=== PATIENT | male | born 1960 | race Caucasian/White ===

== ENCOUNTER 2018-09-07 06:15 | Inpatient (IN) | payer SELFPAY ==
[2018-09-07 06:48] LABS: Prothrombin Time 13.4 SEC (12.0-14.7)
[2018-09-07 06:48] LABS: #Eosinphils 0.2 thou/uL (0.0-0.7); #Lymphocytes 0.9 thou/uL (1.20-3.40); #Monocytes 0.4 thou/uL (0.11-0.59); #Neutrophils 8.7 thou/uL (1.40-6.50); %Basophils 0.5 % (0.0-1.0); %Eosinophils 1.8 % (0.0-10.0); %Lymphocytes 8.6 % (21.0-51.0); %Monocytes 4.1 % (0.0-10.0); Hemoglobin 13.4 g/dL (14.0-18.0); Mean Corpuscular HGB CONC 32.6 g/dL (32.0-36.0); Mean Corpuscular Hemoglobin 30.3 pg (27.0-31.0); Mean Corpuscular Volume 93.1 fL (78.0-98.0); Mean Platelet Volume 7.7 fL (7.4-10.4); Platelet Count 212 thou/uL (130-400); RBC Distribution Width 13.5 % (11.5-14.5); Red Blood Cell (RBC) Count 4.41 mill/uL (4.70-6.10); White Blood Cell (WBC) Count 10.3 thou/uL (4.8-10.8)
[2018-09-07 07:10] LABS: ALT (SGPT) 42 U/L (8-55); AST (SGOT) 46 U/L (5-34); Albumin 3.8 g/dL (3.5-5.0); Alkaline Phosphatase 79 U/L (40-150); Anion Gap 13 mmol/L (10-20); BUN (Urea Nitrogen) 21 mg/dL (8.4-25.7); Bilirubin, Total 0.5 mg/dL (0.2-1.2); CK (CPK) 71 U/L (30-200); Calc. Creatinine Clearance 0 mL/min (70-130); Calcium 8.9 mg/dL (7.8-10.44); Carbon Dioxide 25 mmol/L (22-29); Chloride 105 mmol/L (98-107); Estimated GFR-MDRD 60; Globulin 2.8 g/dL (2.4-3.5); Glucose 354 mg/dL (70-105); Protein, Total 6.6 g/dL (6.0-8.3); Sodium 139 mmol/L (136-145)
--- NOTE | 2018-09-07 08:28 | RAD ---
CHEST 1 VIEW: Date: 09/07/18 INDICATION: Shortness of breath. COMPARISON: None. FINDINGS: There is air space opacity in the right lower lobe suspicious for pneumonia. Recommend correlation. L eft lung appears clear. Heart size is mildly prominent. No pleural effusion or pneumothorax is eviden t. IMPRESSION: Air space opacity of right lower lobe suspicious for pneumonia. Recommend correlation and radiographi c follow-up to resolution. POS: BH
[2018-09-07] MEDS ORDERED: cefTRIAXone\\ROCEPHIN 2 GM VIAL ONE (09:58)
[2018-09-07] MEDS ORDERED: Acetaminophen 325 MG TAB PO PRN (10:33)
[2018-09-07] MEDS ORDERED: Dextrose 50% Abboject 50 ML SYRINGE SLOW IVP PRN (10:41)
[2018-09-07] MEDS ORDERED: HumaLOG 300 UNITS/3 ML VIAL SC PRN (10:41)
[2018-09-07] MEDS ORDERED: Dextrose 5% in Water 1,000 ML IV PRN (10:41)
[2018-09-07] MEDS ORDERED: Carvedilol 6.25 MG TAB PO SCH (10:45)
[2018-09-07] MEDS ORDERED: Lisinopril 10 MG TAB PO SCH (10:45)
[2018-09-07] MEDS ORDERED: Azithromycin 1,000 MG in Sodium Chloride 0.9% 500 ML IVPB SCH (11:00)
[2018-09-07 11:51] LABS: Troponin I 0.061 ng/mL (< 0.028)
[2018-09-07 13:00] VITALS: BMI 26.9
--- NOTE | 2018-09-07 15:28 | HP ---
CHIEF COMPLAINT: Shortness of breath. HISTORY OF PRESENT ILLNESS: This patient is a 57-year-old male with a history of significant tobacco abuse, who is followed by Dr. Adam Colon, who presented via the emergency department. The patient reports that he occasionally will have episodes of acute onset of shortness of breath. He has one of these episodes approximately once a month, although it is variable. He states it comes on fairly suddenly. He feels very short of breath and will have spontaneous resolution within a couple of hours and then he is back to his baseline. He does report that at his baseline he is having some dyspnea with exertion. Today, the patient woke and felt a little bit short of breath when he got out of bed, but attempted to walk to his kitchen and became very dyspneic. He decided at this time he would call 911. Apparently, when EMS arrived, the patient was significantly hypoxic with saturations in the 60s. The patient reports while waiting he got down on his knees because that was the position where he felt like he could breathe the best. His last episode of this occurred about 3 weeks ago. He reports that he has had pulmonary function test with Dr. Colon in the past and was told that he likely had COPD, but also there was a mention of emphysema and asthma. He is on Symbicort, which he has been using routinely, but he does not have a rescue inhaler or nebulizer. He also reports that he has occasional cough that is intermittently productive of clear to discolored sputum, but has not had any in the last several days. Denies any fevers, chills, or chest pain. REVIEW OF SYSTEMS: All other systems were reviewed and all pertinent positives and negatives noted in the history of present illness. PAST MEDICAL HISTORY: 1. COPD/asthma. 2. Hypertension. 3. Diabetes mellitus, which the patient reports is generally under very good control. 4. He also has a history of kidney stones. PAST SURGICAL HISTORY: He had an amputation of the left first finger following a table saw accident. FAMILY HISTORY: Father had a heart attack between 50 and 55 years old, subsequently developed lung cancer, and from that. Mother when he was very young, he does not know any history on her. SOCIAL HISTORY: The patient smokes about 15 cigarettes per day. Denies alcohol or drugs. He is single. He is full code. His sister, Willie Santiago, would be his surrogate decision maker. CURRENT MEDICATIONS: 1. Symbicort inhaled b.i.d., dose is not known. 2. Carvedilol 6.25 p.o. b.i.d. 3. Glipizide 2.5 mg daily. 4. Lisinopril 10 mg daily. 5. Metformin 500 mg b.i.d. ALLERGIES: MORPHINE. PHYSICAL EXAMINATION: VITAL SIGNS: BP 175/94, pulse 83, respirations 19, temperature is 98.3, O2 saturation 95% on room air. GENERAL APPEARANCE: Age-appropriate male, in no distress. Currently, he is sitting up in bed, speaking in full sentences without significant tachypnea. He is wearing no oxygen, and his O2 saturation is 96% to 98%. HEENT: PERRL. No OP lesions. NECK: Supple and symmetric without JVD. HEART: Regular rate and rhythm with no murmurs, gallops, or rubs. LUNGS: Clear to auscultation bilaterally with good chest wall expansion and air exchange. ABDOMEN: Soft, nontender, and nondistended. Positive bowel sounds. No masses. No organomegaly. EXTREMITIES: Reveal no cyanosis, clubbing, or edema. SKIN: Reveals some erythema that is very faint from the abdomen down through the groin area to the upper thighs anteriorly and medially, worse on the right. Multiple small satellite lesions and an evident vermilion type border at the leading edge. 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 PSYCHIATRIC: The patient has normal affect and behavior. NEUROLOGIC: The patient has full function with normal cranial nerves. No gross deficits. LABORATORY DATA: White count 10.3, hemoglobin 13.4, platelets 212. INR is 1 and PTT is 25.0. Sodium is 139, potassium 4.0, chloride 105, CO2 of 25, BUN 21, creatinine 1.23, glucose 354. Lactic acid is 1.3. Calcium 8.9. AST 46 and ALT 42. Troponin 0.026. BNP 1610.7. Flu screen is negative. DIAGNOSTIC DATA: Chest x-ray shows possible right lower lobe infiltrate. EKG shows some left axis deviation with evidence of LVH and repolarization abnormality. IMPRESSION AND PLAN: 1. Acute hypoxic respiratory failure with the patient having reported oxygen saturations in the 60s. He appears to be dramatically better at this point as he is largely asymptomatic and saturating well. Because of the recurrent nature of this and the concern for the possible pneumonia, we will keep the patient on observation status. He has received Rocephin and azithromycin. I will continue that along with aggressive nebulizer treatments as needed, and we will also work up his cardiac situation with the elevated BNP given the episodic nature, and the fairly rapid resolution makes this concerning for possible anginal equivalent. 2. Elevated BNP, concerning for the possibility of underlying heart failure in a patient who has multiple risk factors for coronary artery disease including diabetes, hypertension, smoking, and family history. He may need stress testing at some point as well. His symptoms could potentially represent some type of flash pulmonary edema, although we do not appreciate any that on his x-ray here today. We will see what the echo results are and determine where to go from there. 3. Hypertension. The patient's blood pressure is running very high here today. He has not had his morning medications. We will go ahead and order those now. 4. Diabetes mellitus. We will resume the patient's usual home medications with the diabetic diet, Accu-Cheks, and sliding scale insulin. 5. The patient has evidence of likely tinea cruris that has become expansive over the abdomen and upper thighs. We will try some topical ketoconazole, avoiding p.o. because of the potential interaction with the azithromycin. Job ID: [id number]
[2018-09-07 17:18] LABS: Troponin I 0.058 ng/mL (< 0.028)
[2018-09-07] MEDS: Carvedilol 6.25 MG TAB PO SCH (17:42)
[2018-09-07] MEDS: metFORMIN 500 MG TAB PO SCH (17:42)
[2018-09-08 05:37] LABS: #Basophils 0.1 thou/uL (0.0-0.2); #Eosinphils 0.1 thou/uL (0.0-0.7); #Lymphocytes 2.2 thou/uL (1.20-3.40); #Monocytes 0.9 thou/uL (0.11-0.59); #Neutrophils 6.6 thou/uL (1.40-6.50); %Basophils 0.7 % (0.0-1.0); %Eosinophils 0.7 % (0.0-10.0); %Lymphocytes 22.8 % (21.0-51.0); %Monocytes 8.8 % (0.0-10.0); %Neutrophils 67.1 % (42.0-75.0); Hemoglobin 13.1 g/dL (14.0-18.0); Mean Corpuscular HGB CONC 32.9 g/dL (32.0-36.0); Mean Corpuscular Hemoglobin 30.7 pg (27.0-31.0); Mean Corpuscular Volume 93.4 fL (78.0-98.0); Platelet Count 231 thou/uL (130-400); RBC Distribution Width 13.5 % (11.5-14.5); Red Blood Cell (RBC) Count 4.27 mill/uL (4.70-6.10); White Blood Cell (WBC) Count 9.8 thou/uL (4.8-10.8)
[2018-09-08 05:47] LABS: Magnesium 1.6 mg/dL (1.6-2.6); Potassium 4.1 mmol/L (3.5-5.1)
[2018-09-08] MEDS: metFORMIN 500 MG TAB PO SCH (08:15)
[2018-09-08] MEDS: Carvedilol 6.25 MG TAB PO SCH (08:15)
[2018-09-08 08:16] VITALS: BP 176/85; TEMP 97.7
[2018-09-08] MEDS ORDERED: Lisinopril 10 MG TAB PO SCH (09:00)
[2018-09-08] MEDS ORDERED: Ketoconazole 2% Cream 15 gm Tube TOP SCH (09:00)
[2018-09-08] MEDS ORDERED: cefTRIAXone\\ROCEPHIN 1 GM in Sodium Chloride 0.9% 100 ML IVPB SCH (10:00)
--- NOTE | 2018-09-08 10:54 | DIS ---
DATE OF ADMISSION: 09/07/2018 DATE OF DISCHARGE: 09/08/2018 DISCHARGE DIAGNOSES: 1. Acute hypoxic respiratory failure. 2. Right lower lobe pneumonia. 3. Chronic obstructive pulmonary disease. 4. Elevated BNP. 5. Hypertension. 6. Diabetes mellitus. 7. Tinea cruris. HISTORY OF PRESENT ILLNESS: This patient is a 57-year-old male with a history of COPD/asthma with hypertension and diabetes, who continues to smoke. The patient reports that he has episodes of fairly abrupt onset of shortness of breath, which lasts a couple of hours and then typically would spontaneously resolve. He decided that when it happened again, he would come to the hospital. Therefore, when this some more episode occurred, he called for EMS. The report from the ER was that the patient had sats in the 60s on the arrival of the EMS. The patient reported he had been using his Symbicort as had been prescribed, but did not have a rescue inhaler per se. He received some treatment in the field and nebulizers in the emergency department, and by the time I examined the patient, he was breathing comfortably on room air with sats at 99%. No dyspnea and speaking in full sentences. His lungs were clear. LABORATORY DATA: His labs were notable for white count of 10.3. Glucose was elevated at 354. BNP was 1611. Troponin was 0.026. Lactic acid was 1.3. His chest x-ray report indicated some right lower lobe infiltrate. His EKG showed left ventricular hypertrophy with some repolarization abnormality, some left axis deviation. It was also noted that the patient's blood pressure was elevated in the 170s, although he indicated he had not taken his blood pressure medicines that morning. HOSPITAL COURSE: The patient was resumed on his usual home medications. He was placed on observation on telemetry, where he had no significant findings. His troponin increased slightly to 0.061 and the subsequent was 0.058. The patient had improvement of his blood sugars down to 195. He had repeat chest x-ray ordered. Echocardiogram ordered because of the atypical nature of his chest pain and the elevated BNP with some evidence of LVH on his EKG. The patient remained essentially asymptomatic after admission, and through the night, he was fairly adamant that he was going home first thing this morning. He understands that we do not have the results back on some of the followup studies, but he is essentially saying he is going to leave either way. PHYSICAL EXAMINATION: VITAL SIGNS: This morning, his temperature is 97.7, pulse is 67, respirations 20, O2 saturation 95%, and blood pressure is 176/85. GENERAL: He is awake, alert, oriented, pleasant, and cooperative. HEART: Regular rate and rhythm without murmurs. LUNGS: Clear with fairly good air exchange. No wheezes or rales. ABDOMEN: Benign. EXTREMITIES: No edema. Repeat labs this morning; white count is 9.8, hemoglobin 13.1, and platelets 231. Blood cultures are negative thus far. DISPOSITION: I had a good conversation with the patient explaining that his lungs sound fairly clear and his episodic shortness of breath lasting a couple of hours and resolving sounds somewhat atypical for COPD or even asthma. Clearly, he appeared to have some significant hypoxia on initial presentation by the EMS, however, that resolved quickly and he looks great now. I am concerned there may be an underlying cardiac component. I strongly encouraged him to follow up with Dr. Colon regarding the results of his echocardiogram. We will also prescribe a rescue inhaler and start him on daily aspirin. He understands that should he have any more of these episodes, he should come back to the hospital so that we can fully pursue further cardiac workup including likely stress testing. The patient will be discharged to home. He will be on a heart healthy diet. MEDICATIONS: He will have his usual home medications including, 1. Metformin 500 mg b.i.d. 2. Glipizide 2.5 daily. 3. Zestril 10 mg daily. 4. Coreg 6.25 b.i.d. He will have prescriptions for, 1. Levaquin 750 mg p.o. daily. 2. Aspirin 81 mg daily. 3. Albuterol 2 puffs q.4 hours p.r.n. FOLLOWUP: He is to follow up with Dr. Colon. Encouraged him to follow up with Cardiology as well. We will make an appointment with Dr. Marsh. He is again encouraged to return to the hospital should he have any recurrence of these symptoms. The patient expressed understanding. All his questions were answered. Also of note, the patient had some dermatitis over the lower abdomen through the groin and upper thigh area that was felt to be consistent with a tinea cruris that was expanding, and he was given some topical ketoconazole. However, due to potential interactions with the other medications, he was not given oral ketoconazole, and he was encouraged to follow up with Dr. Colon to pursue further evaluation of that, but that is likely low priority. Job ID: [id number]
[2018-09-08] MEDS ORDERED: Azithromycin 500 MG in Sodium Chloride 0.9% 250 ML 250 ML IVPB SCH (11:00)
== END 2018-09-08 10:01 | disposition home or self-care (01) | DRG 193 ==
LOC: ERS 06:15 → SJJU 09:12 → 2SW 12:27
PROVIDERS: ADMIT Internal Medicine; ATTEND Internal Medicine
DX: J18.1 Lobar pneumonia, unspecified organism (principal); J96.01 Acute respiratory failure with hypoxia; J44.0 Chronic obstructive pulmonary disease with (acute) lower respiratory infection; I10 Essential (primary) hypertension; E11.9 Type 2 diabetes mellitus without complications; B35.6 Tinea cruris; F17.210 Nicotine dependence, cigarettes, uncomplicated; Z79.84 Long term (current) use of oral hypoglycemic drugs; Z87.442 Personal history of urinary calculi; Z79.51 Long term (current) use of inhaled steroids; Z79.899 Other long term (current) drug therapy
CPT/HCPCS: 36415; 36416; 71045; 80053; 82550; 83605; 83735; 83880; 84132; 84484; 85025; 85610; 85730; 87040; 87804; 93005; 93306; 94760; J0456; J0696; J7050

== ENCOUNTER 2019-06-10 09:06 | Inpatient (IN) | payer SELFPAY ==
[2019-06-10 10:37] LABS: ALT (SGPT) 10 U/L (8-55); AST (SGOT) 12 U/L (5-34); Albumin 3.4 g/dL (3.5-5.0); Alkaline Phosphatase 82 U/L (40-110); Anion Gap 18 mmol/L (10-20); BUN (Urea Nitrogen) 18 mg/dL (8.4-25.7); Bilirubin, Total 0.6 mg/dL (0.2-1.2); Calc. Creatinine Clearance 0 mL/min (70-130); Calcium 8.3 mg/dL (7.8-10.44); Carbon Dioxide 19 mmol/L (22-29); Chloride 104 mmol/L (98-107); Estimated GFR-MDRD 54; Globulin 2.9 g/dL (2.4-3.5); Glucose 236 mg/dL (70-105); Potassium 3.6 mmol/L (3.5-5.1); Protein, Total 6.3 g/dL (6.0-8.3); Sodium 137 mmol/L (136-145)
[2019-06-10 11:21] LABS: Band 13 % (5-11); Hemoglobin 14.1 g/dL (14.0-18.0); Lymphocytes 25 % (21-51); MDiff Complete? YES; Mean Corpuscular HGB CONC 31.4 g/dL (32.0-36.0); Mean Corpuscular Hemoglobin 29.1 pg (27.0-31.0); Mean Corpuscular Volume 92.6 fL (78.0-98.0); Mean Platelet Volume 8.2 fL (7.4-10.4); Monocytes 15 % (0-10); Neutrophil 46 % (42-75); Platelet Count 170 thou/uL (130-400); RBC Distribution Width 12.4 % (11.5-14.5); RBC Morphology Normal; Reactive Lymphocytes 1 % (0-10); Red Blood Cell (RBC) Count 4.85 mill/uL (4.70-6.10); White Blood Cell (WBC) Count 5.9 thou/uL (4.8-10.8)
[2019-06-10] MEDS ORDERED: HYDROcodone/Acetaminophen 10/325 mg Tablet ONE (11:28)
--- NOTE | 2019-06-10 12:02 | PDOC.HOSPP ---
- Subjective Encounter Date: 06/10/19 Encounter Time: 12:00 Subjective: intubated, sedated - Objective Result Diagrams: 06/10/19 09:49 06/10/19 09:49 Additional Labs: Accuchecks 06/10/19 09:22 POC Glucose 217 H - Exam Neck: no JVD Heart: RRR, no murmur Respiratory - other findings: coarse bilat Gastrointestinal: soft, normal bowel sounds Extremities - other findings: anasarca
[2019-06-10] MEDS ORDERED: Ondansetron PF 4 MG/2 ML Vial IVP PRN (12:33)
[2019-06-10] MEDS ORDERED: Dextrose 50% Abboject 50 ML SYRINGE SLOW IVP PRN (12:33)
[2019-06-10] MEDS ORDERED: Dextrose 5% in Water 1,000 ML IV PRN (12:33)
[2019-06-10] MEDS ORDERED: Ketorolac Tromethamine 30 MG/ML VIAL IVP PRN (12:34)
--- NOTE | 2019-06-10 12:49 | CT ---
EXAM: CT brain without contrast HISTORY: Altered mental status with right-sided weakness COMPARISON: None TECHNIQUE: Multiple contiguous axial images were obtained and a CT of the brain without contrast. FINDINGS: There is loss of anderson-white matter differentiation in the left parieto-occipital region wit hout significant volume loss which likely represents an evolving infarction. There is no evidence of hydrocephalus, intracranial hemorrhage, or extra-axial fluid collection. The calvarium and overlying soft tissues are unremarkable. The visualized paranasal sinuses and masto id air cells are well aerated. IMPRESSION: Evolving left parieto-occipital infarction.
[2019-06-10] MEDS ORDERED: Enoxaparin Sodium 80 MG/0.8 ML SYRINGE ONE (13:09)
--- NOTE | 2019-06-10 13:23 | HP ---
PRIMARY CARE PROVIDER: Adam Colon MD. HISTORY OF PRESENT ILLNESS: The patient fell yesterday. He denies blacking out. Denies any seizure or loss of consciousness. He drove himself to the [facility] because of some right-sided chest pain. He was sent to [place] [facility] with confusion, altered mental status. [facility] Hospitalist Service was called to admit him. He describes the pain is excruciating, worse with movement, happens after he fell 24 hours ago. The patient has a right-sided spastic hemiplegia. He states he had a stroke earlier this year. He was seen at [facility], not at our hospital. The patient is a difficult historian, partly due to a probable mild aphasia. However, he is alert and oriented with an adequate fund of knowledge, and through our discussion, I was able to get a very reasonable history and physical. PAST MEDICAL HISTORY: Stroke earlier this year with right-sided weakness; diabetes mellitus, insulin-dependent; high blood pressure; elevated cholesterol; and chronic obstructive pulmonary disease. He does not have his medicines with him and does not remember all the doses, but he takes metformin, glipizide, lisinopril, and cholesterol medicine. ALLERGIES: HE IS ALLERGIC TO MORPHINE, CAUSES A RASH. PAST SURGICAL HISTORY: He cut his index finger off his left hand with a chop saw earlier in his life. FAMILY HISTORY: Negative for diabetes and stroke. SOCIAL HISTORY: He is single. Full code status. Does not choose the designated next of kin. He smokes a half a pack a day. He states he is trying to quit. No alcohol. REVIEW OF SYSTEMS: GENERAL: No headache. No true dizziness. He just lost his balance and fell yesterday. EYES: No double vision, blurred vision, or flashing lights. EAR, NOSE, AND THROAT: No ear pain or drainage. No nasal bleeding. No trouble swallowing. CARDIAC: No chest pain other than this sharp pain in his right lateral chest post fall. No orthopnea. No paroxysmal nocturnal dyspnea. No cough, wheezing, or asthma. GASTROINTESTINAL: No nausea, vomiting, diarrhea, abdominal pain, or constipation. GENITOURINARY: No hematuria or dysuria. MUSCULOSKELETAL: He states that he feels like his weakness and clumsiness in his right side is worse than previous. PSYCHIATRIC: He denies any anxiety or depression. SKIN: He notes no skin changes, bruises, bleeding, or rash. HEME/LYMPH: He has noted no lumps or tenderness in his groin under his arms or his neck. PHYSICAL EXAMINATION: GENERAL: He is a modestly disheveled gentleman. VITAL SIGNS: Blood pressure 157/82, pulse 88 at times and 150 at times, respirations 18, O2 saturation was 97% on room air, and temperature was 98.2. HEAD, EYES, NOSE, AND THROAT: Revealed pupils are equal and round. Extraocular movements are intact. Sclerae are white. Tympanic membranes are clear. Nose is clear. Oral mucous membranes are wet. NECK: No jugular venous distention, adenopathy, or thyromegaly. His right posterior lateral chest in the posterior axillary line was exquisitely tender to palpation. LUNGS: His breath sounds revealed bilateral expiratory wheezes. HEART: While I was examining him, he had a rapid irregular heart rate at approximately 150. No murmurs or gallops were appreciated. Shortly thereafter, he was examined, had a regular rhythm without murmurs or gallops. ABDOMEN: Soft. Bowel sounds are normal. No hepatosplenomegaly. No mass. No rebound. No bruits. EXTREMITIES: Revealed no cyanosis, clubbing, or edema. Pulses; carotid, radial, and femoral pulses intact pedal pulses diminished. SKIN: Warm and dry without bruises or rash. HEME/LYMPH: Revealed no tender or swollen lymph nodes in axilla, inguinal, or cervical area. NEUROLOGICAL: Cranial nerves 2 through 12 are intact. He has a right spastic hemiparesis with dis-coordination, but his strength is at least 4/5. DIAGNOSTIC STUDIES: EKG revealed rapid atrial fibrillation with no acute ST-T abnormality reviewed by myself. No radiological studies have been done. LABORATORY DATA: Comprehensive metabolic profile; CO2 is 19, creatinine is 1.35, blood sugar is 236, otherwise normal. CBCs unremarkable. ADMITTING DIAGNOSES: 1. Atrial fibrillation with rapid ventricular response. 2. History of stroke, subjectively adverse, suspicious for extension of previous stroke. 3. 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 4. Hypertension. 5. Dyslipidemia. 6. Tobacco abuse. PLAN: 1. Stat CT scan, if no acute findings, then a following MRI. 2. Telemetry. He is currently in regular sinus rhythm. If this relapses stay atrial fib again, he will be started on an IV infusion of Cardizem. Accu-Chek sliding scales will be obtained. Metformin will be held for the moment. A prolactin will be drawn because of the suspicion for seizure activity. He will require frequent re-evaluations today. Job ID: [id number]
--- NOTE | 2019-06-10 13:43 | MRI ---
EXAM: MRI of the brain without contrast HISTORY: Altered mental status and increasing right-sided weakness COMPARISON: CT brain 06/10/2019 TECHNIQUE: Multiplanar multisequence MR images were obtained of the brain without IV contrast. FINDINGS: There is restricted diffusion and high FLAIR signal in the left parieto-occipital lobe. This correspo nds to the abnormality on CT and represents an evolving acute to subacute infarction. No hydronephrosis. No extra-axial fluid collection or intracranial hemorrhage. The expected flow voids are present. Corpus callosum, pituitary, and craniocervical junction are within normal limits. The calvarium and overlying soft tissues are unremarkable. The paranasal sinuses and mastoid air cells are well aerated. IMPRESSION: Left parieto-occipital infarction.
[2019-06-10 15:12] VITALS: BMI 26.4
[2019-06-10] MEDS: Acetaminophen 325 MG TAB PO PRN (15:16)
--- NOTE | 2019-06-10 15:18 | PDOC.EVN ---
Event Note - Event Note Event Note: progress note by myself dated 06/10/19 is incorrect
[2019-06-10 16:43] LABS: Thyroid Stimulating Hormone 1.3709 uIU/mL (0.35-4.94)
[2019-06-10] MEDS: HumaLOG 300 UNITS/3 ML VIAL SC PRN (17:56)
--- NOTE | 2019-06-10 18:36 | ULT ---
EXAM: Carotid Doppler PROVIDED CLINICAL HISTORY: None COMPARISON: None FINDINGS: Grayscale and color Doppler sonography with spectral analysis was performed of the extracranial carot id system bilaterally. The distal left internal carotid artery was not visualized. There is diffuse intimal thickening involving both common carotid arteries. Atherosclerotic plaque is seen in the huber tid bulb region bilaterally. There is no evidence for a hemodynamically significant internal carotid artery stenosis by peak systolic velocity or ratio criteria. Antegrade flow is seen in the r ight vertebral artery. The left vertebral artery does not demonstrate flow.. IMPRESSION: 1. No sonographic evidence for a hemodynamically significant internal carotid artery stenosis. 2. No detectable flow within the left vertebral artery.
--- NOTE | 2019-06-10 19:06 | PDOC.EVN ---
Event Note - Event Note Event Note: patient in and out atrial fib at 140+/-. will start diltiazem infusion, formal cardiology consult in AM
[2019-06-10] MEDS ORDERED: Diltiazem 125 MG in Sodium Chloride 0.9% 100 ML IVPB SCH (19:15)
[2019-06-10] MEDS ORDERED: Carvedilol 6.25 MG TAB PO SCH (21:00)
[2019-06-10] MEDS: Atorvastatin Calcium 40 MG TAB PO SCH (21:52)
[2019-06-10] MEDS: Enoxaparin Sodium 80 MG/0.8 ML SYRINGE SC SCH (21:53)
[2019-06-10] MEDS ORDERED: Diabetic Tussin 200 MG/10 ML UDCUP PO PRN (23:54)
[2019-06-11] MEDS ORDERED: HYDROcodone/Acetaminophen 5/325 mg Tablet PO PRN (00:04)
[2019-06-11] MEDS: HYDROcodone/Acetaminophen 5/325 mg Tablet PO PRN (00:51)
[2019-06-11 05:10] LABS: #Lymphocytes 1.6 thou/uL (1.20-3.40); #Monocytes 0.8 thou/uL (0.11-0.59); #Neutrophils 4.1 thou/uL (1.40-6.50); %Basophils 0.3 % (0.0-1.0); %Eosinophils 0.3 % (0.0-10.0); %Lymphocytes 24.3 % (21.0-51.0); %Monocytes 12.4 % (0.0-10.0); %Neutrophils 62.7 % (42.0-75.0); Hemoglobin 13.7 g/dL (14.0-18.0); Mean Corpuscular HGB CONC 32.4 g/dL (32.0-36.0); Mean Corpuscular Hemoglobin 30.4 pg (27.0-31.0); Mean Corpuscular Volume 93.8 fL (78.0-98.0); Mean Platelet Volume 8.3 fL (7.4-10.4); Platelet Count 156 thou/uL (130-400); RBC Distribution Width 12.4 % (11.5-14.5); Red Blood Cell (RBC) Count 4.51 mill/uL (4.70-6.10); White Blood Cell (WBC) Count 6.5 thou/uL (4.8-10.8)
[2019-06-11 05:34] LABS: Anion Gap 16 mmol/L (10-20); BUN (Urea Nitrogen) 15 mg/dL (8.4-25.7); Calc. Creatinine Clearance 83 mL/min (70-130); Calcium 8.3 mg/dL (7.8-10.44); Carbon Dioxide 20 mmol/L (22-29); Cardiac Risk 6.6 (Less than 4.5); Chloride 104 mmol/L (98-107); Cholesterol 177 mg/dl (< 200 Desired); Estimated GFR-MDRD 72; Glucose 258 mg/dL (70-105); HDL Cholesterol 27 mg/dL (>60 Neg Risk); LDL Cholesterol, Calculated 118 mg/dL; Sodium 136 mmol/L (136-145); Triglycerides 162 mg/dL (Less than 150)
[2019-06-11] MEDS: HumaLOG 300 UNITS/3 ML VIAL SC PRN ×3 (06:50→16:58)
[2019-06-11] MEDS: Enoxaparin Sodium 80 MG/0.8 ML SYRINGE SC SCH ×2 (08:39→20:56)
[2019-06-11] MEDS ORDERED: Artificial Tears 18 DROP/0.9 ML EA EYE PRN (08:45)
[2019-06-11] MEDS ORDERED: Ondansetron ODT 4 MG TAB PO PRN (08:45)
[2019-06-11] MEDS ORDERED: Sodium Chloride 0.65% Nasal 44 ML BOT EA NARE PRN (08:45)
[2019-06-11] MEDS ORDERED: Loperamide HCl 2 MG CAP PO PRN (08:45)
[2019-06-11] MEDS ORDERED: Bisacodyl 10 MG SUPP PR PRN (08:45)
[2019-06-11] MEDS ORDERED: Calcium Carbonate 500 MG ChewTAB PO PRN (08:45)
[2019-06-11] MEDS ORDERED: Loratadine 10 MG TAB PO PRN (08:45)
[2019-06-11] MEDS ORDERED: Senokot S 8.6-50 MG TAB PO PRN (08:45)
[2019-06-11] MEDS ORDERED: Cepastat Lozenges 1 LOZ PO PRN (08:45)
[2019-06-11] MEDS ORDERED: Lisinopril 10 MG TAB PO SCH ×2 (09:00→21:00)
[2019-06-11] MEDS ORDERED: Aspirin 325 MG TAB PO SCH (09:00)
[2019-06-11] MEDS ORDERED: glipiZIDE 10 MG TAB PO SCH ×2 (10:45→16:30)
[2019-06-11] MEDS ORDERED: metFORMIN 500 MG TAB PO SCH ×2 (10:45→17:00)
[2019-06-11] MEDS ORDERED: Carvedilol 3.125 MG TAB PO SCH ×2 (10:45→21:00)
--- NOTE | 2019-06-11 11:17 | PDOC.HOSPP ---
- Subjective Encounter Date: 06/11/19 Encounter Time: 07:00 Subjective: Patient seen and examined. No new complaints. No overnight events - Objective Vital Signs & Weight: Vital Signs (12 hours) Temp Pulse Resp BP BP BP Pulse Ox 06/11/19 09:37 97 06/11/19 08:39 170/80 H 06/11/19 08:35 99.2 F 68 16 170/80 H 97 06/11/19 04:00 97.5 F L 73 18 169/82 H 98 06/11/19 00:00 98.4 F 84 18 188/94 H 99 Weight Weight 173 lb 14.4 oz I&O: 06/10/19 06/11/19 06/12/19 06:59 06:59 06:59 Intake Total 300 Balance 300 Result Diagrams: 06/11/19 04:29 06/11/19 04:29 Additional Labs: Accuchecks 06/11/19 06/10/19 06/10/19 06:12 20:27 16:34 POC Glucose 223 H 218 H 264 H Radiology Reviewed by me: Yes EKG Reviewed by me: Yes Hospitalist ROS - Review of Systems Constitutional: denies: fever, chills, sweats, weakness, malaise, other Eyes: denies: pain, vision change, conjunctivae inflammation, eyelid inflammation, redness, other ENT: denies: ear pain, ear discharge, nose pain, nose discharge, nose congestion , mouth pain, mouth swelling, throat pain, throat swelling, other Respiratory: denies: cough, dry, shortness of breath, hemoptysis, SOB with excertion, pleuritic pain, sputum, wheezing, other Cardiovascular: denies: chest pain, palpitations, orthopnea, paroxysmal noc. dyspnea, edema, light headedness, other Gastrointestinal: denies: nausea, vomiting, abdominal pain, diarrhea, constipation, melena, hematochezia, other Genitourinary: denies: dysuria, frequency, incontinence, hematuria, retention, other Musculoskeletal: denies: neck pain, shoulder pain, arm pain, back pain, hand pain, leg pain, foot pain, other - Medication Medications: Active Medications Generic Name Dose Route Start Last Admin Trade Name Freq PRN Reason Stop Dose Admin Acetaminophen 650 mg 06/10/19 12:33 06/10/19 15:16 Tylenol PO 650 mg Q4H PRN Administration Headache/Fever/Mild Pain (1-3) Hydrocodone Bitart/Acetaminophen 1 tab 06/11/19 00:04 06/11/19 00:51 [place] 5/325 PO 1 tab Q4H PRN Administration Moderate Pain (4-6) Aspirin 325 mg 06/11/19 09:00 06/11/19 08:40 Aspirin PO 325 mg DAILY TRISTAN Administration Atorvastatin Calcium 40 mg 06/10/19 21:00 06/10/19 21:52 Lipitor PO 40 mg HS TRISTAN Administration Enoxaparin Sodium 80 mg 06/10/19 21:00 06/11/19 08:39 Lovenox SC 80 mg 0900,2100 TRISTAN Administration Guaifenesin 200 mg 06/10/19 23:54 06/11/19 00:51 Robitussin Sf PO 200 mg Q4H PRN Administration Cough Diltiazem HCl 125 mg/ Sodium 125 mls @ 5 mls/hr 06/10/19 19:15 06/10/19 22:08 Chloride IVPB 125 mls INF TRISTAN Administration Protocol 5 MG/HR Insulin Human Lispro 0 units 06/10/19 12:33 06/11/19 06:50 Humalog SC 4 unit .MODERATE SLIDING SC PRN Administration Moderate Correctional Scale Lisinopril 10 mg 06/11/19 09:00 06/11/19 08:39 Zestril PO 10 mg DAILY TRISTAN Administration - Exam General Appearance: NAD, awake alert Eye: PERRL, anicteric sclera ENT: normocephalic atraumatic, no oropharyngeal lesions Neck: supple, symmetric, no JVD, no thyromegaly Heart: no murmur, no gallops, no rubs Respiratory: CTAB, no wheezes, no rales, no ronchi Gastrointestinal: soft, non-tender, non-distended, normal bowel sounds Extremities: no cyanosis, no clubbing, no edema Skin: normal turgor, no lesions Neurological - other findings: right side weakness noted Psychiatric: normal affect, normal behavior Hosp A/P (1) CVA (cerebral vascular accident) Code(s): I63.9 - CEREBRAL INFARCTION, UNSPECIFIED Status: Acute Qualifiers: CVA mechanism: embolism Precerebral and cerebral artery: middle cerebral artery Laterality of affected vessel: left Qualified Code(s): I63.412 - Cerebral infarction due to embolism of left middle cerebral artery Plan: left paritooccipital infarct (2) 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 C congestive heart failure Code(s): I50.41 - ACUTE COMBINED SYSTOLIC AND DIASTOLIC (CONGESTIVE) HRT FAIL Status: Acute (3) Atrial fibrillation Code(s): I48.91 - UNSPECIFIED ATRIAL FIBRILLATION Status: Acute Qualifiers: Atrial fibrillation type: paroxysmal Qualified Code(s): I48.0 - Paroxysmal atrial fibrillation (4) COPD (chronic obstructive pulmonary disease) Status: Chronic (5) Diabetes mellitus Code(s): E11.9 - TYPE 2 DIABETES MELLITUS WITHOUT COMPLICATIONS Status: Acute Qualifiers: Diabetes mellitus type: type 2 Diabetes mellitus oysterman insulin use: with oysterman use Diabetes mellitus complication status: without complication Qualified Code(s): E11.9 - Type 2 diabetes mellitus without complications; Z79.4 - long term care phlebotomist (current) use of insulin (6) Hypertension Code(s): I10 - ESSENTIAL (PRIMARY) HYPERTENSION Status: Chronic Qualifiers: Hypertension type: essential hypertension Qualified Code(s): I10 - Essential (primary) hypertension - Plan old records reviewed/req, PT/OT 06/11/19 neuro to see today cardio to see today will need chronic anticoagulant on lovenox, cardizem drip, will start glipizide and metformin add coreg adjust medication
[2019-06-11 12:38] LABS: Troponin I 0.058 ng/mL (< 0.028)
--- NOTE | 2019-06-11 14:24 | CON ---
DATE OF CONSULTATION: 06/11/2019 INDICATION FOR CONSULTATION: A 58-year-old gentleman who was admitted after a fall yesterday and having some confusion, was noted to be what was thought to be atrial fibrillation or flutter. Upon my evaluation I looked at this rhythm strips and EKG. This appears to be more of an SVT with a heart rate of about 130-140. I do not see any irregularity that would make me think it is atrial fibrillation. He has had no previous history of atrial fibrillation. He did undergo an echocardiogram yesterday which showed ejection fraction about 30% to 35%. with what appears to be diastolic dysfunction. The left ventricle was dilated and otherwise he had some mild mitral aortic and trace tricuspid valve regurgitation. He denies any previous cardiac history, but he does have risk factors for coronary artery disease which include hypertension, diabetes, tobacco abuse, hypercholesterolemia. His father had a myocardial infarction in his 50s apparently, so this patient certainly could have underlying coronary artery disease that may be an etiology of his decreased ejection fraction, also what appeared to be some type of SVT. This may be due to the recent pain after he had a fall yesterday. He hit his ribs and that was the reason he actually went to the emergency room. He fell at home. He said his legs just gave way and he does have some pain in his legs, but they gave way and then he actually got up and drove himself to the hospital and when he was there, it was noted that he seemed to be somewhat confused, which may be due to his previous stroke. He did underwent a CT scan which showed also the CVA, but whether or not this is a new finding is unclear. He may need to undergo further evaluation with an MRI. He did not appear to have any more weakness in general than what he would normally have he says. I do not see that any cardiac enzymes were obtained. We can always use this for evaluation. I would not be surprised if it were not slightly elevated in view of the fact that he has rapid heart rate, but otherwise I do not see any indication that the cardiac enzymes have been obtained. His LDL level was 118 and triglycerides were 162. He does take medications apparently for his cholesterol and for hypertension. Today, his blood pressure is still elevated at 170/80. At this time, he seems to be relatively coherent. He did get some confusion about the events, however, otherwise appears to be stable. He denies any pain and EKG did not show any acute ST-segment changes that would make me think the patient has any evidence of ischemia. His EKG does show an interventricular conduction abnormality and what appears to be at times an incomplete left bundle or right bundle-branch block with a left anterior fascicular block. He did have some T-wave inversions in the lateral leads which could indicate some ischemia. This was apparently from the emergency room EKG. The EKG that was repeated here in the emergency room at 9:52 yesterday morning did not show any significant ST-segment changes, but did show the incomplete left bundle branch block. There was no evidence of ST-segment elevation. He just had some nonspecific lateral EKG changes. PAST MEDICAL HISTORY: Significant for the CVA which he suffered earlier this year. He continues to have some right-sided weakness. He had previously worked, but now lives alone, he has been there for about 6 months and he had a fall yesterday. He has diabetes which is insulin dependent. He has hypertension, hypercholesterolemia. He has COPD. He has had a history of pneumonia. He has chronic kidney disease, history of tobacco abuse. Otherwise his past medical history is significant for nephrolithiasis. 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 ALLERGIES: HE IS ALLERGIC TO MORPHINE. PRESENT MEDICATIONS: Include diltiazem, which he has been placed on a drip. He is on aspirin 325 mg a day, Lipitor 40 mg a day, Coreg is 6.25 mg b.i.d. He is on Lovenox 80 mg b.i.d., glipizide 5 mg b.i.d., lisinopril 10 mg a day, metformin 500 mg b.i.d. He is also taking p.r.n. medications as well as insulin on a sliding scale. FAMILY HISTORY: His father had myocardial infarction in his 50s. REVIEW OF SYSTEMS: HEENT: He had no HEENT complaints. No visual changes, hearing loss or tinnitus. CARDIOVASCULAR: He denied any chest pain, or significant shortness of breath. He does have some shortness of breath with exertion. He had no claudication symptoms. GI: He had no nausea, vomiting, or diarrhea. : No dysuria, polyuria, hematuria. MUSCULOSKELETAL: He always complains of some weakness on the right side since his stroke, otherwise there were no neurologic problems. PHYSICAL EXAMINATION: GENERAL: Reveals a well-developed, well-nourished gentleman, who is in no acute distress at this time. He is he is alert. He seems to be oriented. He did get confused about some issues. He is a little bit more forgetful about the events of what happened yesterday. CHEST: Clear to auscultation. I do not hear any rales, rhonchi, or wheezing. CARDIOVASCULAR: Revealed a regular rate and rhythm with normal S1, S2. I do not hear an S3 or S4. There were no significant murmurs, heaves, thrills, bruits, or rubs. ABDOMEN: Soft, nontender. Positive bowel sounds are present. No organomegaly or masses were noted. In the thorax he does have significant tenderness on the left side after the fall. He has difficulty even breathing due to the pain, but does not appear to have any fractured ribs. It appears that he simply had a bad bruise. MUSCULOSKELETAL: Other than the right-sided weakness, he appears to be relatively normal. VASCULAR: Pedal pulses are positive. Popliteal pulses are present. I do not hear any significant bruits anywhere. PSYCHOSOCIAL: He appears to be of good sound mind. He does not appear to be depressed or anxious. LABORATORY DATA: Shows a WBC of 6.5, hemoglobin 13.7, platelet count 156,000. His potassium was 4.0, BUN was 15, creatinine 1.05, blood sugar was 258. His LDL was 118, triglycerides 162. IMPRESSION: 1. Elderly gentleman with a fall yesterday, which may be due to generalized weakness associated with previous cerebrovascular accident and the confusion, uncertain of etiology, whether this is associated with the fall or not. 2. History of previous cerebrovascular accident. He did undergo a CT scan which shows evidence of a left-sided cerebrovascular accident, which I believe is involved in the left parieto-occipital area. Whether or not there is any new stroke is unclear. He may need to undergo an MRI for further evaluation. 3. History of what appears to be supraventricular tachycardia. We will start the patient on beta blockers and see if we can control the further episodes of the supraventricular tachycardia. Did not appear to be in atrial fibrillation. If this is felt to be flutter, we will ask data integrity analyst, but it appears to be more of a supraventricular tachycardia. If he has flutter, then he would be a candidate to undergo most likely an ablation, but we will try beta blockers first to see we can control the rate. We will ask for a troponin to see if there is any abnormalities there that would be out of line. 4. Multiple risk factors for coronary artery disease. The patient will need to undergo some type of stress testing in the future to rule out evidence of coronary artery disease as a possible etiology of the decrease in left ventricular systolic function. 5. Cardiomyopathy of uncertain etiology whether or not this is due to previous events in the past. He denies any illicit drug use that would entail something that would cause a cardiomyopathy. It could be hereditary. I am uncertain as to why he has a cardiomyopathy, it could be due to hypertension. Also, would need to rule out coronary artery disease. If he is having multiple episodes of supraventricular tachycardia for any length of time, this certainly also could cause tachycardia-induced cardiomyopathy, but it is unlikely in his case since most the time he appears to be in a regular rhythm. 6. For his dyslipidemia, we would agree with continuing statin medications. 7. For his hypertension we would start the beta blockers. 8. Diabetes which is dealt with by the primary care service. There was some note that he had an elevated BNP, but I do not see that laboratory data. This was earlier from August of 2018 there was an elevated BNP, but I do not see this has been repeated. I will be more than happy to continue to follow the patient with you. We will certainly monitor his rhythm status. I would advise stress testing in the near future, possibly before even discharge and then he may need further evaluation depending on the results of the stress test. If he is unable to do the stress testing at this time, it can be done in the near future. He is actually unable to raise the arms over his head after the fall on his ribs yesterday. I do not have the results of the chest x-ray. Perhaps this was done brought prior to the patient being admitted here. We will need to review that to ensure he did not have any rib fractures. Job ID: [id number]
--- NOTE | 2019-06-11 14:49 | CON ---
DATE OF CONSULTATION: 06/11/2019 CONSULTING PHYSICIAN: Hospitalist Service. IMPRESSION: 1. Acute left occipital stroke with residual visual field deficit on the right. 2. Prior stroke with right-sided weakness. 3. Fall with injury to his ribs. 4. Aspirin failure. PLAN: 1. Add Plavix. 2. Continue aspirin and a statin. HISTORY OF PRESENT ILLNESS: Mr. Kong is a 58-year-old man, who has a history of a prior stroke. He has some right-sided weakness. He seemed to feel weak in his knees and took a fall. He hit on the right side, which he thought possibly caused a rib fracture. He went to [facility] for evaluation. He was in quite a bit of pain. He was subsequently transferred here for workup. Initial CT scan showed a suspicious area of ischemia in the left parietal region. A followup MRI showed an acute area of infarction involving the left occipital lobe. The pain in his ribs is doing better today. PAST MEDICAL HISTORY: Stroke, diabetes, high blood pressure, hyperlipidemia, COPD. ALLERGIES: MORPHINE. FAMILY HISTORY: Diabetes and stroke. SOCIAL HISTORY: Positive for tobacco use. REVIEW OF SYSTEMS: Ten-system review of systems is otherwise negative. PHYSICAL EXAMINATION: GENERAL: He is a well-nourished, middle-aged man, in no acute distress. VITAL SIGNS: Blood pressure 157/82, pulse 88, respirations 20. He is afebrile. HEENT: Pupils equal and reactive. Conjunctivae clear. Oropharynx clear. NECK: Supple. No lymphadenopathy. EXTREMITIES: No cyanosis or edema. NEUROLOGIC EXAM: He was alert and cooperative. Speech is fluent and clear. Cranial nerve exam showed a right homonymous field cut. Motor exam showed spastic weakness in the right upper extremity. Lower extremities seem to be symmetric. Sensation was intact to touch. Gait was not tested. No abnormal movements were seen. No tremor or dysmetria was present. DIAGNOSTIC STUDIES: EKG showed atrial fibrillation with a rapid ventricular response. laboratory studies were unremarkable. Carotid ultrasound was clear. Echocardiogram showed a 30% to 35% ejection fraction. SUMMARY: This is a 58-year-old gentleman, who presents with some right visual field deficit that apparently is new. He has been found to be in atrial fibrillation. He has a depressed ejection fraction of 30% to 35%. In review of this, I would have him seen by Cardiology and consider anticoagulation as opposed to Plavix. Job ID: [id number]
[2019-06-11] MEDS: hydrALAZINE 20 MG/ML VIAL SLOW IVP PRN (16:58)
[2019-06-11] MEDS: glipiZIDE 10 MG TAB PO SCH (17:00)
[2019-06-11] MEDS: Atorvastatin Calcium 40 MG TAB PO SCH (20:55)
[2019-06-11] MEDS: Acetaminophen 325 MG TAB PO PRN (20:56)
[2019-06-12] MEDS: HumaLOG 300 UNITS/3 ML VIAL SC PRN ×2 (06:48→11:19)
[2019-06-12] MEDS: glipiZIDE 10 MG TAB PO SCH ×2 (07:54→16:26)
[2019-06-12] MEDS ORDERED: glipiZIDE 10 MG TAB PO SCH (08:00)
--- NOTE | 2019-06-12 08:11 | PDOC.CPN ---
- Subjective Date: 06/12/19 Time: 08:29 Interval history: The pt seen and examined. No overnight events. No cardiac complaints. - Objective Allergies/Adverse Reactions: Allergies Allergy/AdvReac Type Severity Reaction Status Date / Time morphine Allergy Verified 09/07/18 11:00 Visit Medications: Current Medications Acetaminophen (Tylenol) 650 mg PO Q4H PRN PRN Reason: Headache/Fever/Mild Pain (1-3) Last Admin: 06/11/19 20:56 Dose: 650 mg Hydrocodone Bitart/Acetaminophen ([place] 5/325) 1 tab PO Q4H PRN PRN Reason: Moderate Pain (4-6) Last Admin: 06/11/19 00:51 Dose: 1 tab Hydrocodone Bitart/Acetaminophen ([place] 5/325) 2 tab PO Q4H PRN PRN Reason: Severe Pain (7-10) Artificial Tears (Tears Naturale) 2 drop EA EYE PRN PRN PRN Reason: Dry Eyes Aspirin (Ecotrin) 81 mg PO DAILY [facility] Atorvastatin Calcium (Lipitor) 40 mg PO HS [facility] Last Admin: 06/11/19 20:55 Dose: 40 mg Bisacodyl (Dulcolax) 10 mg SC DAILYPRN PRN PRN Reason: Constipation Calcium Carbonate (Tums) 1,000 mg PO Q4H PRN PRN Reason: Heartburn or Indigestion Carvedilol (Coreg) 12.5 mg PO BID [facility] Clopidogrel Bisulfate (Plavix) 75 mg PO DAILY [facility] Dextrose/Water (Dextrose 50%) 25 gm SLOW IVP PRN PRN PRN Reason: Hypoglycemia Famotidine (Pepcid) 20 mg PO BID [facility] Glipizide (Glucotrol) 10 mg PO BID-AC [facility] Glipizide (Glucotrol) 10 mg PO NOW [facility] Stop: 06/12/19 10:00 Glucagon (Glucagon) 1 mg IM PRN PRN PRN Reason: Hypoglycemia Guaifenesin (Robitussin Sf) 200 mg PO Q4H PRN PRN Reason: Cough Last Admin: 06/11/19 00:51 Dose: 200 mg Hydralazine HCl (Apresoline) 10 mg SLOW IVP Q4H PRN PRN Reason: SBP Greater Than 170 Last Admin: 06/11/19 16:58 Dose: 10 mg Dextrose/Water (D5w) 1,000 mls @ 0 mls/hr IV .Q0M PRN PRN Reason: Hypoglycemia Insulin Human Lispro (Humalog) 0 units SC .MODERATE SLIDING SC PRN PRN Reason: Moderate Correctional Scale Last Admin: 06/12/19 06:48 Dose: 4 unit Lisinopril (Zestril) 20 mg PO BID TRISTAN Loperamide HCl (Imodium) 2 mg PO PRN PRN PRN Reason: Diarrhea/Loose Stools Loratadine (Claritin) 10 mg PO DAILYPRN PRN PRN Reason: Sinus Symptoms Metformin HCl (Glucophage) 1,000 mg PO BID-WM TRISTAN Ondansetron HCl (Zofran) 4 mg IVP Q6H PRN PRN Reason: Nausea/Vomiting Ondansetron HCl (Zofran Odt) 4 mg PO Q6H PRN PRN Reason: Nausea/Vomiting Senna/Docusate Sodium (Senokot S) 2 tab PO BIDPRN PRN PRN Reason: Constipation Sodium Chloride (Flush - Normal Saline) 10 ml IVF PRN PRN PRN Reason: Saline Flush Sodium Chloride ([place] Nasal [place] 0.65%) 0 ml EA NARE QIDPRN PRN PRN Reason: Nasal Congestion Throat Lozenges (Cepastat Lozenges) 1 keagan PO Q2H PRN PRN Reason: Sore Throat Vital Signs & Weight: Vital Signs Temp Pulse Resp BP BP Pulse Ox 06/12/19 07:22 98.6 F 77 18 199/94 H 97 06/11/19 23:34 98.6 F 70 20 133/69 97 06/11/19 20:56 172/81 H Weight 173 lb 14.4 oz - Physical Exam General: alert & oriented x3 HEENT: mucus membranes moist Neck: supple neck Cardiac: regular rate and rhythm, S1/S2 Lungs: decreased breath sounds Extremities: no edema Skin: clear - Labs Result Diagrams: 06/11/19 04:29 06/11/19 04:29 Troponin/CKMB Troponin I 0.058 ng/mL (< 0.028) H 06/11/19 12:01 - Telemetry Sinus rhythms and dysrhythmias: other (SR and ST) - Assessment/Plan Assessment/Plan: 1. SVT vs AFib - has been in SR and ST; Will increase Coreg to 25mg BID; Will order Stress test when the pt is more stable 2. s/p CVA with Cerebral infarction due to embolism of left middle cerebral artery - on Plavix and ASA; may start OAC if Afib 3. CMY with EF 30-35% - On BBlocker, MAGEN. Will order Stress test when the pt is more stable 4. HTN - Will increase Coreg to 25mg BID and start Norvasc 5mg qd 5. HLD - 6. DM type 2 7. Current smoker 1/2pk a day - smoking cessation education given to the pt MAR reviewed * Echo on 06/10/2019 with EF 30-35%, grade I dd, mild MR and AR, and trace TR * Carotid study showed no significant stenosis.
[2019-06-12] MEDS: Aspirin 81 mg Enteric Coated Tablet PO SCH (08:25)
[2019-06-12] MEDS: metFORMIN 500 MG TAB PO SCH ×2 (08:25→16:26)
[2019-06-12] MEDS: Lisinopril 20 MG TAB PO SCH ×2 (08:26→21:13)
[2019-06-12] MEDS: Clopidogrel Bisulfate 75 MG TAB PO SCH (08:27)
[2019-06-12 08:59] LABS: Hemoglobin A1c Greater than 14.0 % (4.0-6.0)
[2019-06-12] MEDS ORDERED: Carvedilol 6.25 MG TAB PO SCH ×2 (09:00)
[2019-06-12 09:03] LABS: Anion Gap 16 mmol/L (10-20); BUN (Urea Nitrogen) 13 mg/dL (8.4-25.7); Calc. Creatinine Clearance 83 mL/min (70-130); Calcium 8.7 mg/dL (7.8-10.44); Carbon Dioxide 20 mmol/L (22-29); Chloride 103 mmol/L (98-107); Estimated GFR-MDRD 71; Glucose 198 mg/dL (70-105); Potassium 3.5 mmol/L (3.5-5.1); Sodium 135 mmol/L (136-145)
[2019-06-12 09:04] LABS: Hemoglobin 15.6 g/dL (14.0-18.0); Mean Corpuscular HGB CONC 32.8 g/dL (32.0-36.0); Mean Corpuscular Hemoglobin 30.2 pg (27.0-31.0); Mean Corpuscular Volume 92.3 fL (78.0-98.0); Mean Platelet Volume 8.4 fL (7.4-10.4); Platelet Count 178 thou/uL (130-400); RBC Distribution Width 12.2 % (11.5-14.5); Red Blood Cell (RBC) Count 5.18 mill/uL (4.70-6.10); White Blood Cell (WBC) Count 7.7 thou/uL (4.8-10.8)
[2019-06-12] MEDS: Famotidine 20 MG TAB PO SCH ×2 (09:19→21:15)
[2019-06-12] MEDS: Amlodipine 5 MG TAB PO SCH (09:21)
[2019-06-12] MEDS: Carvedilol 25 MG TAB PO SCH ×2 (09:23→16:26)
[2019-06-12 10:14] LABS: Band 1 % (5-11); Eosinophils 1 % (0-10); Lymphocytes 25 % (21-51); MDiff Complete? YES; Monocytes 4 % (0-10); Neutrophil 68 % (42-75); RBC Morphology Normal; Reactive Lymphocytes 1 % (0-10)
--- NOTE | 2019-06-12 12:59 | PDOC.HOSPP ---
- Subjective Encounter Date: 06/12/19 Encounter Time: 10:30 Subjective: Patient seen and examined. No new complaints. No overnight events - Objective Vital Signs & Weight: Vital Signs (12 hours) Temp Pulse Resp BP BP BP Pulse Ox 06/12/19 11:23 98.6 F 69 16 169/86 H 97 06/12/19 09:21 85 199/94 H 140/85 06/12/19 09:20 199/94 H 06/12/19 08:27 199/94 H 06/12/19 08:26 199/94 H 06/12/19 08:21 97 06/12/19 07:22 98.6 F 77 18 199/94 H 97 Weight Weight 173 lb 14.4 oz I&O: 06/11/19 06/12/19 06/13/19 06:59 06:59 06:59 Intake Total 300 1200 Balance 300 1200 Result Diagrams: 06/12/19 08:34 06/12/19 08:34 Additional Labs: Accuchecks 06/12/19 06/12/19 06/11/19 10:19 05:44 19:41 POC Glucose 339 H 236 H 195 H 06/11/19 16:42 POC Glucose 199 H Radiology Reviewed by me: Yes EKG Reviewed by me: Yes Hospitalist ROS - Review of Systems ENT: denies: ear pain, ear discharge, nose pain, nose discharge, nose congestion , mouth pain, mouth swelling, throat pain, throat swelling, other Respiratory: denies: cough, dry, shortness of breath, hemoptysis, SOB with excertion, pleuritic pain, sputum, wheezing, other Cardiovascular: denies: chest pain, palpitations, orthopnea, paroxysmal noc. dyspnea, edema, light headedness, other Gastrointestinal: denies: nausea, vomiting, abdominal pain, diarrhea, constipation, melena, hematochezia, other Genitourinary: denies: dysuria, frequency, incontinence, hematuria, retention, other Musculoskeletal: denies: neck pain, shoulder pain, arm pain, back pain, hand pain, leg pain, foot pain, other - Medication Medications: Active Medications Generic Name Dose Route Start Last Admin Trade Name Freq PRN Reason Stop Dose Admin Acetaminophen 650 mg 06/10/19 12:33 06/11/19 20:56 Tylenol PO 650 mg Q4H PRN Administration Headache/Fever/Mild Pain (1-3) Hydrocodone Bitart/Acetaminophen 1 tab 06/11/19 00:04 06/11/19 00:51 Saline 5/325 PO 1 tab Q4H PRN Administration Moderate Pain (4-6) Amlodipine Besylate 5 mg 06/12/19 09:00 06/12/19 09:21 Norvasc PO 5 mg DAILY TRISTAN Administration Aspirin 81 mg 06/12/19 09:00 06/12/19 08:25 Ecotrin PO 81 mg DAILY TRISTAN Administration Atorvastatin Calcium 40 mg 06/10/19 21:00 06/11/19 20:55 Lipitor PO 40 mg HS TRISTAN Administration Carvedilol 25 mg 06/12/19 08:00 06/12/19 09:23 Coreg PO Not Given BID-[facility] Clopidogrel Bisulfate 75 mg 06/12/19 09:00 06/12/19 08:27 Plavix PO 75 mg DAILY TRISTAN Administration Famotidine 20 mg 06/12/19 09:00 06/12/19 09:19 Pepcid PO Not Given BID [facility] Guaifenesin 200 mg 06/10/19 23:54 06/11/19 00:51 Robitussin Sf PO 200 mg Q4H PRN Administration Cough Hydralazine HCl 10 mg 06/11/19 12:38 06/11/19 16:58 Apresoline SLOW IVP 10 mg Q4H PRN Administration SBP Greater Than 170 Insulin Human Lispro 0 units 06/10/19 12:33 06/12/19 11:19 Humalog SC 8 unit .MODERATE SLIDING SC PRN Administration Moderate Correctional Scale Lisinopril 20 mg 06/12/19 09:00 06/12/19 08:26 Zestril PO 20 mg BID [facility] Administration Metformin HCl 1,000 mg 06/12/19 08:00 06/12/19 08:25 Glucophage PO 1,000 mg BID-WM [facility] Administration - Exam General Appearance: NAD, awake alert Eye: PERRL, anicteric sclera ENT: normocephalic atraumatic, no oropharyngeal lesions Neck: supple, symmetric, no JVD, no thyromegaly Heart: RRR, no murmur, no gallops, no rubs Respiratory: CTAB, no wheezes, no rales, no ronchi Gastrointestinal: soft, non-tender, non-distended, normal bowel sounds Extremities: no cyanosis, no clubbing Skin: normal turgor, no lesions Neurological - other findings: residual weakness Musculoskeletal: normal tone, normal strength Hosp A/P (1) CVA (cerebral vascular accident) Code(s): I63.9 - CEREBRAL INFARCTION, UNSPECIFIED Status: Acute Qualifiers: CVA mechanism: embolism Precerebral and cerebral artery: middle cerebral artery Laterality of affected vessel: left Qualified Code(s): I63.412 - Cerebral infarction due to embolism of left middle cerebral artery (2) COPD (chronic obstructive pulmonary disease) Status: Chronic (3) Diabetes mellitus Code(s): E11.9 - TYPE 2 DIABETES MELLITUS WITHOUT COMPLICATIONS Status: Chronic Qualifiers: Diabetes mellitus type: type 2 Diabetes mellitus exterminator helper insulin use: with fci use Diabetes mellitus complication status: without complication Qualified Code(s): E11.9 - Type 2 diabetes mellitus without complications; Z79.4 - detention (current) use of insulin (4) Hypertension Code(s): I10 - ESSENTIAL (PRIMARY) HYPERTENSION Status: Chronic Qualifiers: Hypertension type: essential hypertension Qualified Code(s): I10 - Essential (primary) hypertension (5) Paroxysmal SVT (supraventricular tachycardia) Code(s): I47.1 - SUPRAVENTRICULAR TACHYCARDIA Status: Acute (6) Systolic dysfunction without heart failure Code(s): I51.89 - OTHER ILL-DEFINED HEART DISEASES Status: Acute - Plan old records reviewed/req 06/11/19 neuro to see today cardio to see today will need chronic anticoagulant on lovenox, cardizem drip, will start glipizide and metformin add coreg adjust medication 06/12/19 as per cardio, no afib but SVT, dc lovenox may need stress test coreg increased medically stable and improving increase glipizide and metformin plavix added aspirin reduced to 81 continue lipitor pt does not have financial benefit for rehab
--- NOTE | 2019-06-12 16:45 | EKG ---
Test Reason : CP Blood Pressure : / mmHG Vent. Rate : 158 BPM Atrial Rate : 158 BPM P-R Int : 120 ms QRS Dur : 122 ms QT Int : 268 ms P-R-T Axes : -28 -41 153 degrees QTc Int : 434 ms Regular tachycardia Left axis deviation inferior infarct Septal infarct , age undetermined Marked ST abnormality, possible lateral subendocardial injury Abnormal ECG When compared with ECG of 10-JUN-2019 09:52, (Unconfirmed) Sinus rhythm has replaced Wide QRS tachycardia Confirmed by DR. Torres MELTON (3) on 06/12/2019 4:44:34 PM Referred By: AIME Confirmed By:DR. Torres MELTON
[2019-06-12] MEDS: Atorvastatin Calcium 40 MG TAB PO SCH (21:13)
[2019-06-12] MEDS: Acetaminophen 325 MG TAB PO PRN (21:15)
[2019-06-13] MEDS: hydrALAZINE 20 MG/ML VIAL SLOW IVP PRN (06:11)
[2019-06-13] MEDS: Lisinopril 20 MG TAB PO SCH ×2 (08:18→21:24)
[2019-06-13] MEDS: Amlodipine 5 MG TAB PO SCH (08:18)
[2019-06-13] MEDS: Famotidine 20 MG TAB PO SCH ×2 (08:19→21:24)
[2019-06-13] MEDS: Aspirin 81 mg Enteric Coated Tablet PO SCH (08:19)
[2019-06-13] MEDS: glipiZIDE 10 MG TAB PO SCH ×2 (08:19→16:39)
[2019-06-13] MEDS: HYDROcodone/Acetaminophen 5/325 mg Tablet PO PRN (08:19)
[2019-06-13] MEDS: metFORMIN 500 MG TAB PO SCH ×2 (08:19→16:39)
[2019-06-13] MEDS: Clopidogrel Bisulfate 75 MG TAB PO SCH (08:19)
[2019-06-13] MEDS: Carvedilol 25 MG TAB PO SCH ×2 (08:19→16:39)
--- NOTE | 2019-06-13 11:06 | CON ---
DATE OF CONSULTATION: 06/13/2019 This is Connie Valles NP dictating a report for Donovan Baker MD. CONSULTING PHYSICIAN: Donovan Baker MD REASON FOR CONSULTATION: Arrhythmia management and cryptogenic stroke. HISTORY OF PRESENT ILLNESS: Mr. Kong is a 58-year-old gentleman, who presented to [facility] [place] after experiencing a fall with some confusion and right-sided weakness. He was transferred to [place] for further medical evaluation. Head CT and MRI revealed a left parieto-occipital infarct that appears to be a repeat episode from a stroke 6 months prior. Since being hospitalized, he has been seen to have some brief tachycardic episodes and there is some concern for atrial fibrillation versus atrial flutter, especially in light of his repeat strokes. He also had an echocardiogram performed that revealed severely reduced ejection fraction of 30% to 35% with some diastolic dysfunction. He cannot recall cardiac history, but he is having difficult time recalling events whether this is part of his stroke or his pain issues with his damaged ribs is uncertain. In regard to his rapid heartbeats and tachycardic episodes, he endorses that he has had some abnormal heart rhythms for a few years and he is vaguely aware of them. He cannot put any definite symptoms associated, but does feel that he is aware of them from time to time. He does not feel he has ever been formally diagnosed with abnormal heart rhythms before. Mr. Kong is currently sitting upright in bed, reporting pain to his right ribs following his fall and has residual right-sided weakness. He denies any current heart racing, palpitations, chest pain, pressure, syncope, near syncope, or shortness of breath. When he fell at home, he denies loss of consciousness or any preceding heart racing or palpitations. He reports that he is having difficult time getting his legs to work and stumbled and fell. REVIEW OF SYSTEMS: A 12-point review of systems is negative except that listed above in HPI. PAST MEDICAL HISTORY: 1. Cerebrovascular accident in mid 2019 with residual right-sided weakness, type 2 diabetes, insulin dependent. 2. Hypertension. 3. Hypercholesterolemia. 4. COPD. 5. Chronic kidney disease. 6. Tobacco abuse. 7. Raynaud's. PAST SURGICAL HISTORY: Partial finger amputation, index finger of the left hand. ALLERGIES: MORPHINE, WHICH CAUSES A RASH. HOME MEDICATIONS: 1. Lasix. 2. Lisinopril. 3. Metformin. 4. Simvastatin. FAMILY HISTORY: His father had a heart attack in his 50s. SOCIAL HISTORY: He lives alone. He is previously employed. Positive for tobacco. Denies illicit drug use. Denies heavy alcohol intake. OBJECTIVE: VITAL SIGNS: Temperature 98.1 degrees Fahrenheit, pulse 68, blood pressure 190/80, oxygen is 97% on room air, respirations are 10. GENERAL: The patient is alert. He is oriented to person, place, and mostly to situation, but he is a poor historian and appears to have difficult time finding his words today. He appears to be in some [id number] pain, sitting upright in bed. NECK: Supple without jugular venous distention. There is no lymphadenopathy. His trachea is midline. LUNGS: Clear to auscultation bilaterally. Respirations are somewhat guarded. There are no wheezes, crackles, or rhonchi appreciated. HEART: Rate is irregularly irregular with crisp S1 and S2. PMI is nonpalpable. ABDOMEN: Warm and dry to touch without clubbing, cyanosis, or edema. EXTREMITIES: Warm and dry to touch. NEUROLOGIC: Reveals residual right-sided weakness, possibly with some expressive aphasia. DATABASE: Chemistry reveals elevated glucose with hemoglobin A1c of over 14, creatinine is 1.06. Troponin was 0.58. TSH is 1.37. Liver enzymes are within normal ranges. Hematology was unremarkable. Head CT and MRI show left parieto-occipital infarction. Carotid ultrasound was essentially normal. Echocardiogram on 06/10/2019 shows an ejection fraction of 30% to 35% with diastolic dysfunction, mild MR, mild AR. Left atrium is of normal size. Telemetry and EKGs largely show sinus rhythm with occasional paroxysms of SVT, which is suggestive of atrial tachycardia. No true atrial fibrillation has been seen thus far. IMPRESSION: 1. Paroxysmal supraventricular tachycardia, likely paroxysmal atrial tachycardia. 2. Left-sided cerebrovascular accident with recurrent stroke, with right-sided residual deficits, and visual field deficit. 3. Altered mental status. 4. Recent falls. 5. Cardiomyopathy, newly diagnosed, unknown etiology. PLAN AND RECOMMENDATIONS: Mr. Kong presents with recurrent stroke of unknown etiology. He is found to have a severely reduced ejection fraction and is having paroxysmal SVT episodes on telemetry, which likely reflect atrial tachycardia. No true atrial fibrillation is seen thus far, but he is certainly at increased risk for subclinical atrial fibrillation considering his recurrent cryptogenic strokes. Implantable loop recorder monitoring would be prudent for him given his history. He may also benefit from continued beta-samantha therapy versus antiarrhythmic therapy for arrhythmia suppression, possibly with amiodarone versus dofetilide. At this point, after speaking with Neurology, I agree with dual antiplatelet therapy unless true atrial fibrillation or atrial arrhythmias are seen at which point, we will transition him to Eliquis in place of Plavix. Regarding his newly diagnosed cardiomyopathy, I agree with cardiology's evaluation and other plan for a stress test and I continued cardiomyopathy medical management. If EF remains severely depressed long-term, consider an ICD in the future. For now, I would proceed with implantable loop recorder to monitor for arrhythmogenic cause contributing to his recurrent strokes. I discussed the risks, benefits, and alternatives with Mr. Kong and he is willing to proceed, which will likely be performed later today. We will continue to monitor him on telemetry for any abnormal heart rhythms. It seems he does have some bradycardic episodes as well, but has been on diltiazem and is recently started on Coreg as well. He has significant hypertension. We will continue to follow. Thank you for allowing me to participate in the care of this patient. Job ID: [id number]
--- NOTE | 2019-06-13 11:27 | PDOC.HOSPP ---
- Subjective Encounter Date: 06/13/19 Encounter Time: 08:00 Subjective: Some backache.. - Objective Vital Signs & Weight: Vital Signs (12 hours) Temp Pulse Resp BP BP BP Pulse Ox 06/13/19 08:18 68 190/80 H 06/13/19 08:00 134/75 06/13/19 07:26 98.1 F 68 9 L 190/80 H 97 06/13/19 04:00 98.2 F 79 16 187/94 H 98 06/13/19 00:00 98 F 62 18 179/88 H 100 Weight Admit Weight 173 lb 14.4 oz Weight 173 lb 14.4 oz I&O: 06/12/19 06/13/19 06/14/19 06:59 06:59 06:59 Intake Total 1200 1400 Balance 1200 1400 Result Diagrams: 06/12/19 08:34 06/12/19 08:34 Additional Labs: Accuchecks 06/13/19 06/13/19 06/12/19 10:35 06:09 20:05 POC Glucose 311 H 204 H 191 H 06/12/19 06/12/19 16:29 10:19 POC Glucose 129 H 339 H Hospitalist ROS - Medication Medications: Active Medications Generic Name Dose Route Start Last Admin Trade Name Freq PRN Reason Stop Dose Admin Acetaminophen 650 mg 06/10/19 12:33 06/12/19 21:15 Tylenol PO 650 mg Q4H PRN Administration Headache/Fever/Mild Pain (1-3) Hydrocodone Bitart/Acetaminophen 1 tab 06/11/19 00:04 06/13/19 08:19 [place] 5/325 PO 1 tab Q4H PRN Administration Moderate Pain (4-6) Amlodipine Besylate 5 mg 06/12/19 09:00 06/13/19 08:18 Norvasc PO 5 mg DAILY TRISTAN Administration Aspirin 81 mg 06/12/19 09:00 06/13/19 08:19 Ecotrin PO 81 mg DAILY TRISTAN Administration Atorvastatin Calcium 40 mg 06/10/19 21:00 06/12/19 21:13 Lipitor PO 40 mg HS TRISTAN Administration Carvedilol 25 mg 06/12/19 08:00 06/13/19 08:19 Coreg PO 25 mg BID-WM TRISTAN Administration Clopidogrel Bisulfate 75 mg 06/12/19 09:00 06/13/19 08:19 Plavix PO 75 mg DAILY TRISTAN Administration Famotidine 20 mg 06/12/19 09:00 06/13/19 08:19 Pepcid PO 20 mg BID TRISTAN Administration Glipizide 10 mg 06/12/19 16:30 06/13/19 08:19 Glucotrol PO 10 mg BID-AC TRISTAN Administration Guaifenesin 200 mg 06/10/19 23:54 06/11/19 00:51 Robitussin Sf PO 200 mg Q4H PRN Administration Cough Hydralazine HCl 10 mg 06/11/19 12:38 06/13/19 06:11 Apresoline SLOW IVP 10 mg Q4H PRN Administration SBP Greater Than 170 Insulin Human Lispro 0 units 06/10/19 12:33 06/12/19 11:19 Humalog SC 8 unit .MODERATE SLIDING SC PRN Administration Moderate Correctional Scale Lisinopril 20 mg 06/12/19 09:00 06/13/19 08:18 Zestril PO 20 mg BID TRISTAN Administration Metformin HCl 1,000 mg 06/12/19 08:00 06/13/19 08:19 Glucophage PO 1,000 mg BID-WM TRISTAN Administration - Exam General Appearance: NAD Neck: no JVD Heart: RRR Respiratory: CTAB Gastrointestinal: soft Extremities: no edema Psychiatric: normal affect (Mild weakness in right arm..) Hosp A/P (1) Atrial tachycardia Code(s): I47.1 - SUPRAVENTRICULAR TACHYCARDIA Status: Acute (2) CVA (cerebral vascular accident) Code(s): I63.9 - CEREBRAL INFARCTION, UNSPECIFIED Status: Acute Qualifiers: CVA mechanism: embolism Precerebral and cerebral artery: middle cerebral artery Laterality of affected vessel: left Qualified Code(s): I63.412 - Cerebral infarction due to embolism of left middle cerebral artery (3) Systolic dysfunction without heart failure Code(s): I51.89 - OTHER ILL-DEFINED HEART DISEASES Status: Acute (4) COPD (chronic obstructive pulmonary disease) Status: Chronic (5) Diabetes mellitus Code(s): E11.9 - TYPE 2 DIABETES MELLITUS WITHOUT COMPLICATIONS Status: Chronic Qualifiers: Diabetes mellitus type: type 2 Diabetes mellitus longterm insulin use: with terminal computer operator use Diabetes mellitus complication status: without complication Qualified Code(s): E11.9 - Type 2 diabetes mellitus without complications; Z79.4 - adjunct faculty for medical terminology (current) use of insulin (6) Hypertension Code(s): I10 - ESSENTIAL (PRIMARY) HYPERTENSION Status: Chronic Qualifiers: Hypertension type: essential hypertension Qualified Code(s): I10 - Essential (primary) hypertension - Plan Continue current meds.. For Loop Recorder placement.
[2019-06-13] MEDS ORDERED: Lidocaine 1% w/Epinephrine 1:100K 20 ML VIAL ONE (11:30)
[2019-06-13] MEDS: HumaLOG 300 UNITS/3 ML VIAL SC PRN (11:37)
[2019-06-13] MEDS: hydrALAZINE 10 MG TAB PO SCH ×3 (11:38→23:50)
--- NOTE | 2019-06-13 14:00 | OP ---
DATE OF PROCEDURE: 06/13/2019 PROCEDURE PERFORMED: Loop recorder insertion. REASON FOR PROCEDURE: Mr. Kong is a 58-year-old man with recurrent cryptogenic stroke. He does have atrial tachycardia episodes and here for LINQ recorder insertion for further arrhythmia monitoring to rule out atrial fibrillation. DESCRIPTION OF PROCEDURE: The patient's chest area was prepped, draped, and anesthetized using subcutaneous lidocaine and at the 4th intercostal space, an incision was made. With a standard [employer] LINQ recorder insertion tool kit, LINQ recorder was inserted. The model #[id number], serial #[id number]. CONCLUSION: Successful LINQ recorder insertion. PLAN: Continue monitoring. Consider anticoagulation with oral anticoagulant if atrial fibrillation is seen. Job ID: [id number]
--- NOTE | 2019-06-13 16:39 | EKG ---
Test Reason : Blood Pressure : / mmHG Vent. Rate : 060 BPM Atrial Rate : 060 BPM P-R Int : 148 ms QRS Dur : 118 ms QT Int : 452 ms P-R-T Axes : 032 -39 141 degrees QTc Int : 452 ms Normal sinus rhythm Left axis deviation Incomplete left bundle branch block Abnormal ECG When compared with ECG of 11-JUN-2019 22:17, Previous ECG has undetermined rhythm, needs review Criteria for Septal infarct are no longer Present ST less depressed in Lateral leads T wave inversion now evident in Anterior leads Confirmed by DR. Torres MELTON ([id number]) on 06/13/2019 4:38:31 PM Referred By: JOSE A Confirmed By:DR. Torres MELTON
[2019-06-13] MEDS: Acetaminophen 325 MG TAB PO PRN (21:24)
[2019-06-13] MEDS: Atorvastatin Calcium 40 MG TAB PO SCH (21:24)
[2019-06-14] MEDS: hydrALAZINE 10 MG TAB PO SCH ×4 (05:20→23:05)
[2019-06-14] MEDS ORDERED: Regadenoson 0.4 MG/5 ML SYRINGE ONE (09:54)
[2019-06-14] MEDS: Famotidine 20 MG TAB PO SCH ×2 (10:57→21:06)
[2019-06-14] MEDS: metFORMIN 500 MG TAB PO SCH ×2 (10:57→16:04)
[2019-06-14] MEDS: glipiZIDE 10 MG TAB PO SCH ×2 (10:57→16:04)
[2019-06-14] MEDS: Lisinopril 20 MG TAB PO SCH ×2 (12:23→21:06)
[2019-06-14] MEDS: Amlodipine 5 MG TAB PO SCH (12:25)
[2019-06-14] MEDS: Aspirin 81 mg Enteric Coated Tablet PO SCH (12:25)
[2019-06-14] MEDS: Clopidogrel Bisulfate 75 MG TAB PO SCH (12:26)
[2019-06-14] MEDS: Carvedilol 25 MG TAB PO SCH ×2 (12:27→16:05)
[2019-06-14] MEDS ORDERED: glipiZIDE 10 MG TAB PO SCH (12:30)
[2019-06-14] MEDS ORDERED: metFORMIN 500 MG TAB PO SCH (12:30)
[2019-06-14] MEDS ORDERED: Famotidine 20 MG TAB PO SCH (12:30)
--- NOTE | 2019-06-14 12:52 | NM ---
EXAM: CARDIAC SPECT HISTORY: Chest pain, cardiomyopathy, diabetes, hypertension, COPD. TECHNIQUE: A myocardial perfusion scan was performed using the single isotope 1 day protocol with ryanne hnetium 99m sestamibi. [10 mCi] was injected intravenously for the rest exam followed by 30 mCi for the stress study. Pharmacologic stress with Lexiscan was monitored and interpreted by Dr. Hernandez FINDINGS: A fixed defect is seen in the proximal inferior wall. No reversible defects are identified. The left ventricular cavity is dilated. Gated SPECT LVEF: 31% Wall motion exam: Global hypokinesis IMPRESSION: No evidence of reversible ischemia.
--- NOTE | 2019-06-14 13:09 | PDOC.HOSPP ---
- Subjective Encounter Date: 06/14/19 Encounter Time: 11:30 Subjective: No specific complaint.. - Objective Vital Signs & Weight: Vital Signs (12 hours) Temp Pulse Resp BP BP Pulse Ox 06/14/19 12:28 77 199/105 H 06/14/19 12:25 95 199/105 H 06/14/19 12:23 199/105 H 06/14/19 07:25 97.8 F 77 12 150/94 H 97 06/14/19 04:44 97.5 F L 74 16 157/79 H 97 Weight Admit Weight 173 lb 14.4 oz Weight 173 lb 14.4 oz I&O: 06/13/19 06/14/19 06/15/19 06:59 06:59 06:59 Intake Total 1400 1070 Balance 1400 1070 Result Diagrams: 06/12/19 08:34 06/12/19 08:34 Additional Labs: Accuchecks 06/14/19 06/14/19 06/13/19 12:30 06:14 19:31 POC Glucose 257 H 163 H 229 H 06/13/19 16:40 POC Glucose 102 Hospitalist ROS - Medication Medications: Active Medications Generic Name Dose Route Start Last Admin Trade Name Freq PRN Reason Stop Dose Admin Acetaminophen 650 mg 06/10/19 12:33 06/13/19 21:24 Tylenol PO 650 mg Q4H PRN Administration Headache/Fever/Mild Pain (1-3) Hydrocodone Bitart/Acetaminophen 1 tab 06/11/19 00:04 06/13/19 08:19 [place] 5/325 PO 1 tab Q4H PRN Administration Moderate Pain (4-6) Amlodipine Besylate 5 mg 06/12/19 09:00 06/14/19 12:25 Norvasc PO 5 mg DAILY TRISTAN Administration Aspirin 81 mg 06/12/19 09:00 06/14/19 12:25 Ecotrin PO 81 mg DAILY TRISTAN Administration Atorvastatin Calcium 40 mg 06/10/19 21:00 06/13/19 21:24 Lipitor PO 40 mg HS TRISTAN Administration Carvedilol 25 mg 06/12/19 08:00 06/14/19 12:27 Coreg PO 25 mg BID-WM TRISTAN Administration Clopidogrel Bisulfate 75 mg 06/12/19 09:00 06/14/19 12:26 Plavix PO 75 mg DAILY TRISTAN Administration Famotidine 20 mg 06/12/19 09:00 06/13/19 21:24 Pepcid PO 20 mg BID TRISTAN Administration Famotidine 20 mg 06/14/19 12:30 06/14/19 12:29 Pepcid PO 06/14/19 14:50 20 mg NOW TRISTAN Administration Glipizide 10 mg 06/12/19 16:30 06/14/19 10:57 Glucotrol PO Not Given BID-AC TRISTAN Glipizide 10 mg 06/14/19 12:30 06/14/19 12:25 Glucotrol PO 06/14/19 14:30 10 mg NOW TRISTAN Administration Guaifenesin 200 mg 06/10/19 23:54 06/11/19 00:51 Robitussin Sf PO 200 mg Q4H PRN Administration Cough Hydralazine HCl 10 mg 06/11/19 12:38 06/13/19 06:11 Apresoline SLOW IVP 10 mg Q4H PRN Administration SBP Greater Than 170 Hydralazine HCl 10 mg 06/13/19 12:00 06/14/19 12:28 Apresoline PO 10 mg Q6HR TRISTAN Administration Insulin Human Lispro 0 units 06/10/19 12:33 06/13/19 11:37 Humalog SC 8 unit .MODERATE SLIDING SC PRN Administration Moderate Correctional Scale Lisinopril 20 mg 06/12/19 09:00 06/14/19 12:23 Zestril PO 20 mg BID TRISTAN Administration Metformin HCl 1,000 mg 06/12/19 08:00 06/13/19 16:39 Glucophage PO 1,000 mg BID-WM TRISTAN Administration Metformin HCl 1,000 mg 06/14/19 12:30 06/14/19 12:23 Glucophage PO 06/14/19 14:30 1,000 mg NOW TRISTAN Administration Sodium Chloride 10 ml 06/10/19 12:33 06/13/19 21:24 Flush - Normal Saline IVF 10 ml PRN PRN Administration Saline Flush - Exam Neck: no JVD Heart: RRR Respiratory: CTAB Gastrointestinal: soft Extremities: no edema (mild right arm weakness..) Hosp A/P (1) Atrial tachycardia Code(s): I47.1 - SUPRAVENTRICULAR TACHYCARDIA Status: Acute (2) CVA (cerebral vascular accident) Code(s): I63.9 - CEREBRAL INFARCTION, UNSPECIFIED Status: Acute Qualifiers: CVA mechanism: embolism Precerebral and cerebral artery: middle cerebral artery Laterality of affected vessel: left Qualified Code(s): I63.412 - Cerebral infarction due to embolism of left middle cerebral artery (3) Systolic dysfunction without heart failure Code(s): I51.89 - OTHER ILL-DEFINED HEART DISEASES Status: Acute (4) COPD (chronic obstructive pulmonary disease) Status: Chronic (5) Diabetes mellitus Code(s): E11.9 - TYPE 2 DIABETES MELLITUS WITHOUT COMPLICATIONS Status: Chronic Qualifiers: Diabetes mellitus type: type 2 Diabetes mellitus manager intermediate insulin use: with longterm use Diabetes mellitus complication status: without complication Qualified Code(s): E11.9 - Type 2 diabetes mellitus without complications; Z79.4 - half-way (current) use of insulin (6) Hypertension Code(s): I10 - ESSENTIAL (PRIMARY) HYPERTENSION Status: Chronic Qualifiers: Hypertension type: essential hypertension Qualified Code(s): I10 - Essential (primary) hypertension - Plan Continue current meds.. s/p Loop Recorder placement. f/u stress test.. [facility]?
[2019-06-14] MEDS: HumaLOG 300 UNITS/3 ML VIAL SC PRN (17:02)
[2019-06-14] MEDS: Atorvastatin Calcium 40 MG TAB PO SCH (21:06)
[2019-06-15] MEDS: Acetaminophen 325 MG TAB PO PRN (00:08)
--- NOTE | 2019-06-15 03:40 | DIS ---
DATE OF ADMISSION: 06/10/2019 DATE OF DISCHARGE: 06/14/2019 CONSULTING PHYSICIAN: Donovan Baker MD ADMITTING DIAGNOSES: Atrial fibrillation with rapid ventricular response, history of CVA, diabetes mellitus, hypertension, and dyslipidemia. DISCHARGE DIAGNOSES: Atrial tachycardia, CVA, diabetes mellitus, hypertension, dyslipidemia, and new stroke was diagnosed._ The patient had stroke in the past. CONSULTANTS: Dr. Thomas, Dr. Gutierrez, and Ms. Mclaughlin is a nurse practitioner to consulting, Dr. Baker. PROCEDURES: Brain CT, brain MRI, carotid Doppler, echocardiogram, EKG, electrophysiologic study, and placement of loop recorder and stress test, which was normal. COURSE OF HOSPITALIZATION: The patient had a stress test and the stress test showed a left ventricular ejection fraction of 31% with global hypokinesis. There was no reversible ischemia. Course of hospitalization has been stable with mild left arm weakness. The patient declined discharge to [facility] and wants to go home. He is being discharged. He is relatively stable. For discharge medication, please see discharge medication reconciliation sheet. He is to follow up with his primary care physician, also with Cardiology and Neurology. DISCHARGE TIME: 32 minutes. For today's physical examination, please report to the patient's medical record progress note section. Job ID: [id number] [id number]
[2019-06-15] MEDS: hydrALAZINE 20 MG/ML VIAL SLOW IVP PRN (04:32)
[2019-06-15] MEDS: hydrALAZINE 10 MG TAB PO SCH ×3 (05:39→17:26)
[2019-06-15] MEDS: HumaLOG 300 UNITS/3 ML VIAL SC PRN ×2 (06:27→16:35)
[2019-06-15] MEDS: Carvedilol 25 MG TAB PO SCH ×2 (08:50→16:34)
[2019-06-15] MEDS: Amlodipine 5 MG TAB PO SCH (08:50)
[2019-06-15] MEDS: Clopidogrel Bisulfate 75 MG TAB PO SCH (08:50)
[2019-06-15] MEDS: Lisinopril 20 MG TAB PO SCH ×2 (08:50→20:14)
[2019-06-15] MEDS: glipiZIDE 10 MG TAB PO SCH ×2 (08:50→16:34)
[2019-06-15] MEDS: Famotidine 20 MG TAB PO SCH ×2 (08:51→20:14)
[2019-06-15] MEDS: Aspirin 81 mg Enteric Coated Tablet PO SCH (08:51)
[2019-06-15] MEDS: metFORMIN 500 MG TAB PO SCH ×2 (08:51→16:33)
--- NOTE | 2019-06-15 09:07 | PDOC.HOSPP ---
- Subjective Encounter Date: 06/15/19 Encounter Time: 08:20 - Objective Vital Signs & Weight: Vital Signs (12 hours) Temp Pulse Resp BP BP BP Pulse Ox 06/15/19 08:50 70 167/70 H 06/15/19 07:00 97.7 F 70 16 167/76 H 96 06/15/19 05:39 61 134/70 06/15/19 04:32 78 06/15/19 03:00 97.6 F 78 16 184/79 H 98 06/14/19 23:05 69 175/90 H 06/14/19 23:02 97.6 F 69 175/90 H 100 06/14/19 21:06 138/65 Weight Admit Weight 173 lb 14.4 oz Weight 173 lb 14.4 oz I&O: 06/14/19 06/15/19 06/16/19 06:59 06:59 06:59 Intake Total 1070 2160 Balance 1070 2160 Result Diagrams: 06/12/19 08:34 06/12/19 08:34 Additional Labs: Accuchecks 06/14/19 06/14/19 16:43 12:30 POC Glucose 270 H 257 H Hospitalist ROS - Medication Medications: Active Medications Generic Name Dose Route Start Last Admin Trade Name Freq PRN Reason Stop Dose Admin Acetaminophen 650 mg 06/10/19 12:33 06/15/19 00:08 Tylenol PO 650 mg Q4H PRN Administration Headache/Fever/Mild Pain (1-3) Hydrocodone Bitart/Acetaminophen 1 tab 06/11/19 00:04 06/13/19 08:19 [place] 5/325 PO 1 tab Q4H PRN Administration Moderate Pain (4-6) Amlodipine Besylate 5 mg 06/12/19 09:00 06/15/19 08:50 Norvasc PO 5 mg DAILY TRISTAN Administration Aspirin 81 mg 06/12/19 09:00 06/15/19 08:51 Ecotrin PO 81 mg DAILY TRISTAN Administration Atorvastatin Calcium 40 mg 06/10/19 21:00 06/14/19 21:06 Lipitor PO 40 mg HS TRISTAN Administration Carvedilol 25 mg 06/12/19 08:00 06/15/19 08:50 Coreg PO 25 mg BID-WM TRISTAN Administration Clopidogrel Bisulfate 75 mg 06/12/19 09:00 06/15/19 08:50 Plavix PO 75 mg DAILY TRISTAN Administration Famotidine 20 mg 06/12/19 09:00 06/15/19 08:51 Pepcid PO 20 mg BID TRISTAN Administration Glipizide 10 mg 06/12/19 16:30 06/15/19 08:50 Glucotrol PO 10 mg BID-AC TRISTAN Administration Guaifenesin 200 mg 06/10/19 23:54 06/11/19 00:51 Robitussin Sf PO 200 mg Q4H PRN Administration Cough Hydralazine HCl 10 mg 06/11/19 12:38 06/15/19 04:32 Apresoline SLOW IVP 10 mg Q4H PRN Administration SBP Greater Than 170 Hydralazine HCl 10 mg 06/13/19 12:00 06/15/19 05:39 Apresoline PO 10 mg Q6HR TRISTAN Administration Insulin Human Lispro 0 units 06/10/19 12:33 06/15/19 06:27 Humalog SC 2 unit .MODERATE SLIDING SC PRN Administration Moderate Correctional Scale Lisinopril 20 mg 06/12/19 09:00 06/15/19 08:50 Zestril PO 20 mg BID TRISTAN Administration Metformin HCl 1,000 mg 06/12/19 08:00 06/15/19 08:51 Glucophage PO 1,000 mg BID-WM TRISTAN Administration Sodium Chloride 10 ml 06/10/19 12:33 06/13/19 21:24 Flush - Normal Saline IVF 10 ml PRN PRN Administration Saline Flush - Exam Neck: no JVD Heart: RRR Respiratory: CTAB Gastrointestinal: soft Extremities: no edema Neurological: vision deficit Psychiatric: normal affect Hosp A/P (1) Atrial tachycardia Code(s): I47.1 - SUPRAVENTRICULAR TACHYCARDIA Status: Acute (2) CVA (cerebral vascular accident) Code(s): I63.9 - CEREBRAL INFARCTION, UNSPECIFIED Status: Acute Qualifiers: CVA mechanism: embolism Precerebral and cerebral artery: middle cerebral artery Laterality of affected vessel: left Qualified Code(s): I63.412 - Cerebral infarction due to embolism of left middle cerebral artery (3) Systolic dysfunction without heart failure Code(s): I51.89 - OTHER ILL-DEFINED HEART DISEASES Status: Acute (4) COPD (chronic obstructive pulmonary disease) Status: Chronic (5) Diabetes mellitus Code(s): E11.9 - TYPE 2 DIABETES MELLITUS WITHOUT COMPLICATIONS Status: Chronic Qualifiers: Diabetes mellitus type: type 2 Diabetes mellitus long-term insulin use: with long-term use Diabetes mellitus complication status: without complication Qualified Code(s): E11.9 - Type 2 diabetes mellitus without complications; Z79.4 - FPC (current) use of insulin (6) Hypertension Code(s): I10 - ESSENTIAL (PRIMARY) HYPERTENSION Status: Chronic Qualifiers: Hypertension type: essential hypertension Qualified Code(s): I10 - Essential (primary) hypertension - Plan Continue current meds.. s/p Loop Recorder placement. EF 31%. Awaiting life vest..
[2019-06-15] MEDS: Atorvastatin Calcium 40 MG TAB PO SCH (20:14)
[2019-06-16] MEDS: hydrALAZINE 10 MG TAB PO SCH ×4 (00:22→17:19)
[2019-06-16] MEDS: Aspirin 81 mg Enteric Coated Tablet PO SCH (08:25)
[2019-06-16] MEDS: glipiZIDE 10 MG TAB PO SCH (08:25)
[2019-06-16] MEDS: metFORMIN 500 MG TAB PO SCH ×2 (08:25→17:19)
[2019-06-16] MEDS: Amlodipine 5 MG TAB PO SCH (08:25)
[2019-06-16] MEDS: Famotidine 20 MG TAB PO SCH ×2 (08:26→21:21)
[2019-06-16] MEDS: Carvedilol 25 MG TAB PO SCH ×2 (08:26→17:19)
[2019-06-16] MEDS: Clopidogrel Bisulfate 75 MG TAB PO SCH (08:26)
[2019-06-16] MEDS: Insulin Glargine 30 UNITS in Pre-Filled Syringe 1 EACH SC SCH (08:26)
[2019-06-16] MEDS: Lisinopril 20 MG TAB PO SCH ×2 (08:26→21:21)
--- NOTE | 2019-06-16 08:38 | PDOC.CPN ---
- Subjective Date: 06/16/19 Time: 08:41 Interval history: The pt seen and examined. No overnight events. No cardiac complaints. - Objective Allergies/Adverse Reactions: Allergies Allergy/AdvReac Type Severity Reaction Status Date / Time morphine Allergy Verified 09/07/18 11:00 Visit Medications: Current Medications Acetaminophen (Tylenol) 650 mg PO Q4H PRN PRN Reason: Headache/Fever/Mild Pain (1-3) Last Admin: 06/15/19 00:08 Dose: 650 mg Hydrocodone Bitart/Acetaminophen ([place] 5/325) 1 tab PO Q4H PRN PRN Reason: Moderate Pain (4-6) Last Admin: 06/13/19 08:19 Dose: 1 tab Hydrocodone Bitart/Acetaminophen ([place] 5/325) 2 tab PO Q4H PRN PRN Reason: Severe Pain (7-10) Amlodipine Besylate (Norvasc) 5 mg PO DAILY [facility] Last Admin: 06/16/19 08:25 Dose: 5 mg Artificial Tears (Tears Naturale) 2 drop EA EYE PRN PRN PRN Reason: Dry Eyes Aspirin (Ecotrin) 81 mg PO DAILY [facility] Last Admin: 06/16/19 08:25 Dose: 81 mg Atorvastatin Calcium (Lipitor) 40 mg PO HS [facility] Last Admin: 06/15/19 20:14 Dose: 40 mg Bisacodyl (Dulcolax) 10 mg [place] DAILYPRN PRN PRN Reason: Constipation Calcium Carbonate (Tums) 1,000 mg PO Q4H PRN PRN Reason: Heartburn or Indigestion Carvedilol (Coreg) 25 mg PO BID-WM [facility] Last Admin: 06/16/19 08:26 Dose: 25 mg Clopidogrel Bisulfate (Plavix) 75 mg PO DAILY [facility] Last Admin: 06/16/19 08:26 Dose: 75 mg Dextrose/Water (Dextrose 50%) 25 gm SLOW IVP PRN PRN PRN Reason: Hypoglycemia Famotidine (Pepcid) 20 mg PO BID [facility] Last Admin: 06/16/19 08:26 Dose: Not Given Glipizide (Glucotrol) 10 mg PO BID-AC [facility] Last Admin: 06/16/19 08:25 Dose: 10 mg Glucagon (Glucagon) 1 mg IM PRN PRN PRN Reason: Hypoglycemia Guaifenesin (Robitussin Sf) 200 mg PO Q4H PRN PRN Reason: Cough Last Admin: 06/11/19 00:51 Dose: 200 mg Hydralazine HCl (Apresoline) 10 mg SLOW IVP Q4H PRN PRN Reason: SBP Greater Than 170 Last Admin: 06/15/19 04:32 Dose: 10 mg Hydralazine HCl (Apresoline) 10 mg PO Q6HR [facility] Last Admin: 06/16/19 06:34 Dose: 10 mg Dextrose/Water (D5w) 1,000 mls @ 0 mls/hr IV .Q0M PRN PRN Reason: Hypoglycemia Insulin Glargine 30 units/ (Miscellaneous Medication) 0.3 mls @ 0 mls/hr [facility] Last Admin: 06/16/19 08:26 Dose: 0.3 mls Insulin Human Lispro (Humalog) 0 units SC .MODERATE SLIDING SC PRN PRN Reason: Moderate Correctional Scale Last Admin: 06/15/19 16:35 Dose: 2 unit Lisinopril (Zestril) 20 mg PO BID [facility] Last Admin: 06/16/19 08:26 Dose: 20 mg Loperamide HCl (Imodium) 2 mg PO PRN PRN PRN Reason: Diarrhea/Loose Stools Loratadine (Claritin) 10 mg PO DAILYPRN PRN PRN Reason: Sinus Symptoms Metformin HCl (Glucophage) 1,000 mg PO BID-[facility] Last Admin: 06/16/19 08:25 Dose: 1,000 mg Ondansetron HCl (Zofran) 4 mg IVP Q6H PRN PRN Reason: Nausea/Vomiting Ondansetron HCl (Zofran Odt) 4 mg PO Q6H PRN PRN Reason: Nausea/Vomiting Senna/Docusate Sodium (Senokot S) 2 tab PO BIDPRN PRN PRN Reason: Constipation Sodium Chloride (Flush - Normal Saline) 10 ml IVF PRN PRN PRN Reason: Saline Flush Last Admin: 06/13/19 21:24 Dose: 10 ml Sodium Chloride ([place] Nasal [place] 0.65%) 0 ml EA NARE QIDPRN PRN PRN Reason: Nasal Congestion Throat Lozenges (Cepastat Lozenges) 1 keagan PO Q2H PRN PRN Reason: Sore Throat Vital Signs & Weight: Vital Signs Temp Pulse Resp BP BP BP BP 06/16/19 08:26 178/83 H 06/16/19 08:25 65 178/83 H 06/16/19 07:25 98.0 F 65 21 H 178/83 H 06/16/19 06:34 80 190/91 H 06/16/19 03:52 97.8 F 80 14 132/80 06/16/19 00:22 68 168/81 H 06/16/19 00:18 97.8 F 68 22 H 168/81 H Pulse Ox 06/16/19 08:26 06/16/19 08:25 06/16/19 07:25 99 06/16/19 06:34 06/16/19 03:52 99 06/16/19 00:22 06/16/19 00:18 97 Admit Weight 173 lb 14.4 oz Weight 173 lb 14.4 oz - Physical Exam General: alert & oriented x3 HEENT: mucus membranes moist Neck: supple neck Cardiac: regular rate and rhythm, S1/S2 Lungs: clear to auscultation Extremities: no edema - Labs Result Diagrams: 06/16/19 09:22 06/16/19 09:22 Troponin/CKMB Troponin I 0.058 ng/mL (< 0.028) H 06/11/19 12:01 - Telemetry Sinus rhythms and dysrhythmias: sinus rhythm - Assessment/Plan Assessment/Plan: 1. SVT vs AFib - has been in SR and ST; Will increase Coreg to 25mg BID; Stress test showed no ischemia; S/p LINQ placement by Dr Baker 2. s/p CVA with Cerebral infarction due to embolism of left middle cerebral artery - on Plavix and ASA; may start OAC if Afib 3. CMY with EF 30-35% - On BBlocker, MAGEN. Stress test showed no ischemia; waiting for LifeVest 4. HTN - Will increase Norvasc from 5mg to 10mg qd from this AM 5. HLD - 6. DM type 2 7. Current smoker 1/2pk a day - smoking cessation education given to the pt MAR reviewed * Echo on 06/10/2019 with EF 30-35%, grade I dd, mild MR and AR, and trace TR * Carotid study showed no significant stenosis. * Stress test on 06/13/2019 with fixed defect in prox inferior wall, no ischemia , global hypokinesis, and EF 31% Pt. seen and eval. by me. I agree with the A/P by the BACK END WEB DEVELOPER. He denies any new complaints. Chest clear. RRR. No edema. Waiting on Life-Vest.
[2019-06-16] MEDS ORDERED: Amlodipine 5 MG TAB PO SCH (09:00)
[2019-06-16 09:47] LABS: Anion Gap 16 mmol/L (10-20); BUN (Urea Nitrogen) 19 mg/dL (8.4-25.7); Calc. Creatinine Clearance 73 mL/min (70-130); Carbon Dioxide 22 mmol/L (22-29); Chloride 101 mmol/L (98-107); Estimated GFR-MDRD 62; Glucose 323 mg/dL (70-105); Potassium 3.7 mmol/L (3.5-5.1); Sodium 135 mmol/L (136-145)
[2019-06-16 09:54] LABS: Hemoglobin 14.5 g/dL (14.0-18.0); Mean Corpuscular HGB CONC 33.4 g/dL (32.0-36.0); Mean Corpuscular Hemoglobin 30.2 pg (27.0-31.0); Mean Corpuscular Volume 90.2 fL (78.0-98.0); Mean Platelet Volume 8.8 fL (7.4-10.4); Platelet Count 245 thou/uL (130-400); Red Blood Cell (RBC) Count 4.79 mill/uL (4.70-6.10); White Blood Cell (WBC) Count 6.2 thou/uL (4.8-10.8)
[2019-06-16] MEDS: HumaLOG 300 UNITS/3 ML VIAL SC PRN (11:39)
--- NOTE | 2019-06-16 17:41 | PRG ---
DATE OF SERVICE: 06/16/2019 SUBJECTIVE: Mr. Kong seems to be doing better. Less confused or sedated than Sunday. His loop recorder insertion site is healing well. OBJECTIVE DATA: VITAL SIGNS: Blood pressure is 178/83, heart rate 65, respirations 21, and temperature 98 degrees Fahrenheit. GENERAL: Alert and oriented man, in no apparent distress. NECK: Supple. Jugular veins not distended. CHEST: Coarse. No crackles. HEART: Sounds are regular to rate and rhythm. No murmur or gallop. ABDOMEN: Benign. Bowel sounds positive. EXTREMITIES: Without edema, clubbing, or cyanosis. Loop recorder insertion site without reaction. Telemetry strips reveal no further arrhythmias. ASSESSMENT AND PLAN: Mr. Kong is a 58-year-old man with history of recurrent cerebrovascular accident and also newly found cardiomyopathy, who has an intermittent atrial tachycardia episodes. No true atrial fibrillation is documented yet. He underwent LINQ recorder placement on Sunday. For now, his arrhythmia is well suppressed with Coreg 25 mg twice a day. 1. Hence the recurrent cryptogenic strokes, I think it is reasonable to continue with LINQ recorder monitoring. Should he develop true atrial fibrillation or flutter, he may benefit from changing his anticoagulant from aspirin and Plavix to an oral anticoagulant. 2. Cardiomyopathy. He is awaiting LifeVest placement. Hence, left ventricular ejection fraction 30% to 35%. If with adequate medical therapy left ventricular ejection fraction does not improve in the next 3 months, consideration for ICD implant could be made. 3. Atrial tachycardia, well controlled with beta-samantha therapy. Continue monitoring with LINQ recorder for an atrial fibrillation which could be the cause of his cryptogenic stroke. Job ID: [id number]
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
[2019-06-16] MEDS: Atorvastatin Calcium 40 MG TAB PO SCH (21:21)
[2019-06-17] MEDS ORDERED: HumaLOG 300 UNITS/3 ML VIAL SC PRN (01:32)
[2019-06-17] MEDS: hydrALAZINE 10 MG TAB PO SCH ×4 (01:33→17:33)
--- NOTE | 2019-06-17 08:47 | PDOC.CPN ---
- Subjective Date: 06/17/19 Time: 08:49 Interval history: The pt seen and examined. No overnight events. No cardiac complaints. - Objective Allergies/Adverse Reactions: Allergies Allergy/AdvReac Type Severity Reaction Status Date / Time morphine Allergy Verified 09/07/18 11:00 Visit Medications: Current Medications Acetaminophen (Tylenol) 650 mg PO Q4H PRN PRN Reason: Headache/Fever/Mild Pain (1-3) Last Admin: 06/15/19 00:08 Dose: 650 mg Hydrocodone Bitart/Acetaminophen ([place] 5/325) 1 tab PO Q4H PRN PRN Reason: Moderate Pain (4-6) Last Admin: 06/13/19 08:19 Dose: 1 tab Hydrocodone Bitart/Acetaminophen ([place] 5/325) 2 tab PO Q4H PRN PRN Reason: Severe Pain (7-10) Amlodipine Besylate (Norvasc) 10 mg PO DAILY [facility] Artificial Tears (Tears Naturale) 2 drop EA EYE PRN PRN PRN Reason: Dry Eyes Aspirin (Ecotrin) 81 mg PO DAILY [facility] Last Admin: 06/16/19 08:25 Dose: 81 mg Atorvastatin Calcium (Lipitor) 40 mg PO HS [facility] Last Admin: 06/16/19 21:21 Dose: 40 mg Bisacodyl (Dulcolax) 10 mg [place] DAILYPRN PRN PRN Reason: Constipation Calcium Carbonate (Tums) 1,000 mg PO Q4H PRN PRN Reason: Heartburn or Indigestion Carvedilol (Coreg) 25 mg PO BID-[facility] Last Admin: 06/16/19 17:19 Dose: 25 mg Clopidogrel Bisulfate (Plavix) 75 mg PO DAILY [facility] Last Admin: 06/16/19 08:26 Dose: 75 mg Dextrose/Water (Dextrose 50%) 25 gm SLOW IVP PRN PRN PRN Reason: Hypoglycemia Famotidine (Pepcid) 20 mg PO BID [facility] Last Admin: 06/16/19 21:21 Dose: 20 mg Glucagon (Glucagon) 1 mg IM PRN PRN PRN Reason: Hypoglycemia Guaifenesin (Robitussin Sf) 200 mg PO Q4H PRN PRN Reason: Cough Last Admin: 06/11/19 00:51 Dose: 200 mg Hydralazine HCl (Apresoline) 10 mg SLOW IVP Q4H PRN PRN Reason: SBP Greater Than 170 Last Admin: 06/15/19 04:32 Dose: 10 mg Hydralazine HCl (Apresoline) 10 mg PO Q6HR [facility] Last Admin: 06/17/19 05:55 Dose: 10 mg Dextrose/Water (D5w) 1,000 mls @ 0 mls/hr IV .Q0M PRN PRN Reason: Hypoglycemia Insulin Glargine 30 units/ (Miscellaneous Medication) 0.3 mls @ 0 mls/hr SC [facility] Last Admin: 06/16/19 08:26 Dose: 0.3 mls Insulin Human Lispro (Humalog) 0 units SC .MODERATE SLIDING SC PRN PRN Reason: Moderate Correctional Scale Last Admin: 06/16/19 11:39 Dose: 6 unit Insulin Human Lispro (Humalog) 0 units SC .BEDTIME SLIDING SC PRN; Protocol PRN Reason: BEDTIME SLIDING SCALE Lisinopril (Zestril) 20 mg PO BID [facility] Last Admin: 06/16/19 21:21 Dose: 20 mg Loperamide HCl (Imodium) 2 mg PO PRN PRN PRN Reason: Diarrhea/Loose Stools Loratadine (Claritin) 10 mg PO DAILYPRN PRN PRN Reason: Sinus Symptoms Metformin HCl (Glucophage) 1,000 mg PO BID-[facility] Last Admin: 06/16/19 17:19 Dose: 1,000 mg Ondansetron HCl (Zofran) 4 mg IVP Q6H PRN PRN Reason: Nausea/Vomiting Ondansetron HCl (Zofran Odt) 4 mg PO Q6H PRN PRN Reason: Nausea/Vomiting Senna/Docusate Sodium (Senokot S) 2 tab PO BIDPRN PRN PRN Reason: Constipation Sodium Chloride (Flush - Normal Saline) 10 ml IVF PRN PRN PRN Reason: Saline Flush Last Admin: 06/13/19 21:24 Dose: 10 ml Sodium Chloride ([place] 0.65%) 0 ml EA NARE QIDPRN PRN PRN Reason: Nasal Congestion Throat Lozenges (Cepastat Lozenges) 1 keagan PO Q2H PRN PRN Reason: Sore Throat Vital Signs & Weight: Vital Signs Temp Pulse Resp BP BP BP Pulse Ox 06/17/19 07:44 98.3 F 69 15 140/79 98 06/17/19 05:55 63 149/72 H 06/17/19 03:47 97.5 F L 63 16 149/72 H 94 L 06/17/19 01:33 69 145/82 H 06/16/19 23:51 97.5 F L 69 16 145/82 H 99 06/16/19 21:21 138/68 Admit Weight 173 lb 14.4 oz Weight 173 lb 14.4 oz - Physical Exam General: alert & oriented x3 HEENT: mucus membranes moist Neck: supple neck Cardiac: regular rate and rhythm, S1/S2 Lungs: clear to auscultation - Labs Result Diagrams: 06/16/19 09:22 06/16/19 09:22 Troponin/CKMB Troponin I 0.058 ng/mL (< 0.028) H 06/11/19 12:01 - Telemetry Sinus rhythms and dysrhythmias: sinus rhythm - Assessment/Plan Assessment/Plan: 1. SVT vs AFib - has been in SR and ST; On Coreg to 25mg BID; Stress test showed no ischemia; S/p LINQ placement by Dr Baker 2. s/p CVA with Cerebral infarction due to embolism of left middle cerebral artery - on Plavix and ASA; may start OAC if Afib 3. CMY with EF 30-35% - On BBlocker, MAGEN. Stress test showed no ischemia; waiting for LifeVest; however, the pt is DNAR 4. HTN - stable with current med 5. HLD - 6. DM type 2 7. Current smoker 1/2pk a day - smoking cessation education given to the pt MAR reviewed * Echo on 06/10/2019 with EF 30-35%, grade I dd, mild MR and AR, and trace TR * Carotid study showed no significant stenosis. * Stress test on 06/13/2019 with fixed defect in prox inferior wall, no ischemia , global hypokinesis, and EF 31% Pt. seen and eval. by me. I agree with the A/P by the RAILROAD CAR LETTERER. I spent quite some time this AM explaining to the pt. why he had the LINQ implanted after he said he did not know why or what it was and that he did not authorize it. I also explained to him the logic about why it was suggested that he have a Life-Vest. I am not sure he fully understands. He is frustrated and wants to go home. He stated that he went to the ER for possible broken ribs and has now beenin the hospital for 7 days and wants to go home. He lives alone but takes care of himself. 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 Supposedly he had some type of neurologic evaluation. He may need help to apply for disability, he says that he was told that he probably could work but he says that he can not. Chest clear. RRR, no edema. EP will follow his Linq and AICD if he gets one or is agreeable to it.
[2019-06-17] MEDS: Insulin Glargine 30 UNITS in Pre-Filled Syringe 1 EACH SC SCH (09:12)
[2019-06-17] MEDS: Famotidine 20 MG TAB PO SCH ×2 (09:13→22:09)
[2019-06-17] MEDS: Lisinopril 20 MG TAB PO SCH ×2 (09:13→22:09)
[2019-06-17] MEDS: Clopidogrel Bisulfate 75 MG TAB PO SCH (09:13)
[2019-06-17] MEDS: Aspirin 81 mg Enteric Coated Tablet PO SCH (09:13)
[2019-06-17] MEDS: Amlodipine 10 MG TAB PO SCH (09:13)
[2019-06-17] MEDS: Carvedilol 25 MG TAB PO SCH ×2 (09:14→17:33)
[2019-06-17] MEDS: metFORMIN 500 MG TAB PO SCH ×2 (09:14→17:33)
[2019-06-17] MEDS: HumaLOG 300 UNITS/3 ML VIAL SC PRN (12:37)
--- NOTE | 2019-06-17 13:46 | PDOC.PALCO ---
Palliative Care Consult - Consult Details Requesting Physician: Dr Rosado Reason for Consult: goals of care, assistance with communication prognosis/ disease Family Members Present: none - Pertinent HPI Patient poor historian, difficulty with elements of history recall. States he fell and drove himself to [facility] emergency room and was subsequently transferred to [facility] for higher level of care after he reported right sided chest pain and noted to have an altered mental status. Admitted for higher level of care secondary to Atrial Fib with rvr, history of cva. Patient does report prior stroke that he was treated for at [facility]. Lives independently and states he is attempting to obtain disability. - Pertinent PMH History of CVA, DM II insulin dependent, HTN, HDL, COPD - Social History Smoking Status: Current every day smoker Smoking: cigarettes Alcohol Use: none Drug Use History: none Living Situation: independent - Medications MAR Reviewed: Yes - Allergies Allergies/Adverse Reactions: Allergies Allergy/AdvReac Type Severity Reaction Status Date / Time morphine Allergy Verified 09/07/18 11:00 - Subjective Weakness, ambulates currently with walker, frustrated as he "just wants to go home". - Objective Vital Signs: Vital Signs - Most Recent Temp Pulse Resp BP Pulse Ox 97.9 F 54 L 16 129/63 98 06/17/19 11:31 06/17/19 12:38 06/17/19 11:31 06/17/19 12:38 06/17/19 11:31 Palliative Performance Scale: 40 - Physical Exam Constitutional: confusion, mild distress HEENT: EOMI, moist MMs, scleral icterus Respiratory: wheezing present Cardiovascular: irregular Gastrointestinal: non-tender, positive bowel sounds Musculoskeletal: no cyanosis, no clubbing, no edema, pulses present Deviation from normal: mildly diminished pedal pulses, all equal Neurology: moves all 4 limbs, no focal deficits Skin: cap refill <2 seconds, no lesions, no rash Psychiatric: A&O x 3 Deviation from normal: Poor memory recall, - Problem List (1) Palliative care encounter Code(s): Z51.5 - ENCOUNTER FOR PALLIATIVE CARE Current Visit: Yes Status: Acute (2) Atrial tachycardia Code(s): I47.1 - SUPRAVENTRICULAR TACHYCARDIA Current Visit: Yes Status: Acute (3) Systolic dysfunction without heart failure Code(s): I51.89 - OTHER ILL-DEFINED HEART DISEASES Current Visit: Yes Status : Acute (4) COPD (chronic obstructive pulmonary disease) Current Visit: Yes Status: Chronic (5) Hypertension Code(s): I10 - ESSENTIAL (PRIMARY) HYPERTENSION Current Visit: Yes Status: Chronic Qualifiers: Hypertension type: essential hypertension Qualified Code(s): I10 - Essential (primary) hypertension - Plan/Recommendations Plan: Lengthy conversation with patient in relation to disease processes and disease trajectory. Patient unable to verbally explain back his current cardiac disease and need for life vest if approved. Patient states he "just wants to go home". Discussed that transition with rehab can get him stronger to return home. Patient expressed that he wants to persue treatments that are appropriate, but "not too much", when asked if he meant "conservative measures" he confirmed. Palliative Care RN to follow to continue with education in relation to disease processes. Please refer to in note section of chart under palliative care. [60] minutes spent on this encounter with >50% of the time in counseling and coordination of care. Thank you for this very appropriate consult.
--- NOTE | 2019-06-17 17:45 | PDOC.HOSPP ---
- Subjective Encounter Date: 06/17/19 Encounter Time: 12:00 Subjective: The patient is doing well. No chest pain or shortness of breath, no palpitations. [employer] came today, but awaiting insurance approval to put it on. Patient has decided to be a full code but doesn't want prolonged CPR if something were to happen to him or prolonged ventilation He was seen by PT, did better today and thought he may qualify for home health. - Objective Vital Signs & Weight: Vital Signs (12 hours) Temp Pulse Pulse Resp BP BP BP 06/17/19 17:33 60 144/72 H 06/17/19 15:40 97.9 F 60 15 06/17/19 15:24 64 167/80 H 06/17/19 14:45 65 188/85 H 06/17/19 12:38 54 L 129/63 06/17/19 11:31 97.9 F 54 L 16 06/17/19 09:13 69 140/79 06/17/19 08:00 06/17/19 07:44 98.3 F 69 15 06/17/19 05:55 63 149/72 H BP Pulse Ox 06/17/19 17:33 06/17/19 15:40 144/72 H 96 06/17/19 15:24 06/17/19 14:45 06/17/19 12:38 06/17/19 11:31 129/63 98 06/17/19 09:13 06/17/19 08:00 98 06/17/19 07:44 140/79 98 06/17/19 05:55 Weight Admit Weight 173 lb 14.4 oz Weight 173 lb 14.4 oz I&O: 06/16/19 06/17/19 06/18/19 06:59 06:59 06:59 Intake Total 840 600 360 Balance 840 600 360 Result Diagrams: 06/16/19 09:22 06/16/19 09:22 Additional Labs: Accuchecks 06/17/19 06/17/19 06/17/19 16:33 12:38 11:31 POC Glucose 90 251 H 252 H 06/17/19 06/17/19 06/16/19 10:19 06:10 20:32 POC Glucose 284 H 141 H 216 H Hospitalist ROS - Review of Systems Constitutional: denies: fever, chills - Medication Medications: Active Medications Generic Name Dose Route Start Last Admin Trade Name Freq PRN Reason Stop Dose Admin Acetaminophen 650 mg 06/10/19 12:33 06/15/19 00:08 Tylenol PO 650 mg Q4H PRN Administration Headache/Fever/Mild Pain (1-3) Hydrocodone Bitart/Acetaminophen 1 tab 06/11/19 00:04 06/13/19 08:19 [place] 5/325 PO 1 tab Q4H PRN Administration Moderate Pain (4-6) Amlodipine Besylate 10 mg 06/17/19 09:00 06/17/19 09:13 Norvasc PO 10 mg DAILY TRISTAN Administration Aspirin 81 mg 06/12/19 09:00 06/17/19 09:13 Ecotrin PO 81 mg DAILY TRISTAN Administration Atorvastatin Calcium 40 mg 06/10/19 21:00 06/16/19 21:21 Lipitor PO 40 mg HS TRISTAN Administration Carvedilol 25 mg 06/12/19 08:00 06/17/19 17:33 Coreg PO 25 mg BID-WM TRISTAN Administration Clopidogrel Bisulfate 75 mg 06/12/19 09:00 06/17/19 09:13 Plavix PO 75 mg DAILY TRISTAN Administration Famotidine 20 mg 06/12/19 09:00 06/17/19 09:13 Pepcid PO 20 mg BID TRISTAN Administration Guaifenesin 200 mg 06/10/19 23:54 06/11/19 00:51 Robitussin Sf PO 200 mg Q4H PRN Administration Cough Hydralazine HCl 10 mg 06/11/19 12:38 06/15/19 04:32 Apresoline SLOW IVP 10 mg Q4H PRN Administration SBP Greater Than 170 Hydralazine HCl 10 mg 06/13/19 12:00 06/17/19 17:33 Apresoline PO 10 mg Q6HR TRISTAN Administration Insulin Glargine 30 units/ 0.3 mls @ 0 mls/hr 06/16/19 09:00 06/17/19 09:12 Miscellaneous Medication SC 0.3 mls QAM TRISTAN Administration Insulin Human Lispro 0 units 06/10/19 12:33 06/17/19 12:37 Humalog SC 6 unit .MODERATE SLIDING SC PRN Administration Moderate Correctional Scale Lisinopril 20 mg 06/12/19 09:00 06/17/19 09:13 Zestril PO 20 mg BID TRISTAN Administration Metformin HCl 1,000 mg 06/12/19 08:00 06/17/19 17:33 Glucophage PO 1,000 mg BID-WM TRISTAN Administration Sodium Chloride 10 ml 06/10/19 12:33 06/13/19 21:24 Flush - Normal Saline IVF 10 ml PRN PRN Administration Saline Flush - Exam General Appearance: NAD, awake alert Eye: PERRL, anicteric sclera ENT: normocephalic atraumatic, no oropharyngeal lesions Heart: RRR, no murmur, no gallops, no rubs Respiratory: CTAB, no wheezes, no rales, no ronchi Gastrointestinal: soft, non-tender, non-distended, normal bowel sounds, no bruit Neurological: normal sensation to touch. negative: no new deficit, facial droop Neurological - other findings: 4/5 strength RUE and RLE Musculoskeletal: normal tone, normal strength, no muscle wasting Hosp A/P (1) Atrial tachycardia Code(s): I47.1 - SUPRAVENTRICULAR TACHYCARDIA Status: Acute (2) CVA (cerebral vascular accident) Code(s): I63.9 - CEREBRAL INFARCTION, UNSPECIFIED Status: Acute Qualifiers: CVA mechanism: embolism Precerebral and cerebral artery: middle cerebral artery Laterality of affected vessel: left Qualified Code(s): I63.412 - Cerebral infarction due to embolism of left middle cerebral artery (3) Paroxysmal SVT (supraventricular tachycardia) Code(s): I47.1 - SUPRAVENTRICULAR TACHYCARDIA Status: Acute (4) Diabetes mellitus Code(s): E11.9 - TYPE 2 DIABETES MELLITUS WITHOUT COMPLICATIONS Status: Chronic Qualifiers: Diabetes mellitus type: type 2 Diabetes mellitus terminal make up operator insulin use: with shelter use Diabetes mellitus complication status: without complication Qualified Code(s): E11.9 - Type 2 diabetes mellitus without complications; Z79.4 - FCI (current) use of insulin (5) Hypertension Code(s): I10 - ESSENTIAL (PRIMARY) HYPERTENSION Status: Chronic Qualifiers: Hypertension type: essential hypertension Qualified Code(s): I10 - Essential (primary) hypertension - Plan MRI 06/10: left parieto-occipital infarction CT brain: left parieto-occipital infarction Nuclear stress tesT 06/14: EF 31%, global hypokinesis This is 58 year old male who presented with chest pain and confusion. Found to have a stroke. Stress test showed Ef 31%, patient is s/p loop recorder placement #Left parietal stroke - noted on MRI - on aspirin, statin, plavix -can be discharged home with home health #Atrial tachycardia #Systolic heart failure with EF 30% #Hypertension -s/p loop recorder placement. Awaiting life-vest - may need ICD implant in 3 months if systolic function does not improve per Dr. Baker - on aspirin, statin, plavix - coreg 25 mg bid -continue amlodipine 10 mg daily by cardiology, on lisinopril 20 mg bid, hydralazine 10 mg q6 hours. BP 120-180. If still slightly higher, will consider further increase in BP Meds Hyponatremia - sodium 135, encourage oral intake #Hypoglycemia #Type II diabetes - continue metformin Code status: full code Dispo: waiting for life-vest with insurance approval
[2019-06-17] MEDS: Atorvastatin Calcium 40 MG TAB PO SCH (22:09)
[2019-06-18] MEDS ORDERED: Dextrose 50 % In Water 50 ML SYRINGE ONE ×2 (01:14→01:40)
[2019-06-18] MEDS ORDERED: Dextrose 5 %-0.45 % NaCl 1,000 ML IV SCH (02:15)
[2019-06-18 05:30] LABS: Anion Gap 10 mmol/L (10-20); BUN (Urea Nitrogen) 19 mg/dL (8.4-25.7); Calc. Creatinine Clearance 91 mL/min (70-130); Calcium 8.7 mg/dL (7.8-10.44); Carbon Dioxide 25 mmol/L (22-29); Chloride 104 mmol/L (98-107); Estimated GFR-MDRD 80; Glucose 221 mg/dL (70-105); Potassium 3.4 mmol/L (3.5-5.1); Sodium 136 mmol/L (136-145)
[2019-06-18] MEDS: hydrALAZINE 10 MG TAB PO SCH ×3 (06:33→12:28)
--- NOTE | 2019-06-18 08:13 | PDOC.CPN ---
- Subjective Date: 06/18/19 Time: 08:15 Interval history: The pt seen and examined. No overnight events. No cardiac complaints. - Objective Allergies/Adverse Reactions: Allergies Allergy/AdvReac Type Severity Reaction Status Date / Time morphine Allergy Verified 09/07/18 11:00 Visit Medications: Current Medications Acetaminophen (Tylenol) 650 mg PO Q4H PRN PRN Reason: Headache/Fever/Mild Pain (1-3) Last Admin: 06/15/19 00:08 Dose: 650 mg Hydrocodone Bitart/Acetaminophen ([place] 5/325) 1 tab PO Q4H PRN PRN Reason: Moderate Pain (4-6) Last Admin: 06/13/19 08:19 Dose: 1 tab Hydrocodone Bitart/Acetaminophen ([place] 5/325) 2 tab PO Q4H PRN PRN Reason: Severe Pain (7-10) Amlodipine Besylate (Norvasc) 10 mg PO DAILY [facility] Last Admin: 06/17/19 09:13 Dose: 10 mg Artificial Tears (Tears Naturale) 2 drop EA EYE PRN PRN PRN Reason: Dry Eyes Aspirin (Ecotrin) 81 mg PO DAILY [facility] Last Admin: 06/17/19 09:13 Dose: 81 mg Atorvastatin Calcium (Lipitor) 40 mg PO HS [facility] Last Admin: 06/17/19 22:09 Dose: 40 mg Bisacodyl (Dulcolax) 10 mg HI DAILYPRN PRN PRN Reason: Constipation Calcium Carbonate (Tums) 1,000 mg PO Q4H PRN PRN Reason: Heartburn or Indigestion Carvedilol (Coreg) 25 mg PO BID-[facility] Last Admin: 06/17/19 17:33 Dose: 25 mg Clopidogrel Bisulfate (Plavix) 75 mg PO DAILY [facility] Last Admin: 06/17/19 09:13 Dose: 75 mg Dextrose/Water (Dextrose 50%) 25 gm SLOW IVP PRN PRN PRN Reason: Hypoglycemia Famotidine (Pepcid) 20 mg PO BID [facility] Last Admin: 06/17/19 22:09 Dose: 20 mg Glucagon (Glucagon) 1 mg IM PRN PRN PRN Reason: Hypoglycemia Guaifenesin (Robitussin Sf) 200 mg PO Q4H PRN PRN Reason: Cough Last Admin: 06/11/19 00:51 Dose: 200 mg Hydralazine HCl (Apresoline) 10 mg SLOW IVP Q4H PRN PRN Reason: SBP Greater Than 170 Last Admin: 06/15/19 04:32 Dose: 10 mg Hydralazine HCl (Apresoline) 10 mg PO Q6HR [facility] Last Admin: 06/18/19 06:34 Dose: 10 mg Dextrose/Water (D5w) 1,000 mls @ 0 mls/hr IV .Q0M PRN PRN Reason: Hypoglycemia Last Admin: 06/18/19 01:44 Dose: 1,000 mls Insulin Glargine 30 units/ (Miscellaneous Medication) 0.3 mls @ 0 mls/hr SC QAM [facility] Last Admin: 06/17/19 09:12 Dose: 0.3 mls Dextrose/Sodium Chloride (D5 1/2 Ns) 1,000 mls @ 100 mls/hr IV .Q10H [facility] Last Admin: 06/18/19 02:08 Dose: 1,000 mls Insulin Human Lispro (Humalog) 0 units SC .MODERATE SLIDING SC PRN PRN Reason: Moderate Correctional Scale Last Admin: 06/17/19 12:37 Dose: 6 unit Insulin Human Lispro (Humalog) 0 units SC .BEDTIME SLIDING SC PRN; Protocol PRN Reason: BEDTIME SLIDING SCALE Lisinopril (Zestril) 20 mg PO BID [facility] Last Admin: 06/17/19 22:09 Dose: 20 mg Loperamide HCl (Imodium) 2 mg PO PRN PRN PRN Reason: Diarrhea/Loose Stools Loratadine (Claritin) 10 mg PO DAILYPRN PRN PRN Reason: Sinus Symptoms Metformin HCl (Glucophage) 1,000 mg PO BID-[facility] Last Admin: 06/17/19 17:33 Dose: 1,000 mg Ondansetron HCl (Zofran) 4 mg IVP Q6H PRN PRN Reason: Nausea/Vomiting Ondansetron HCl (Zofran Odt) 4 mg PO Q6H PRN PRN Reason: Nausea/Vomiting Senna/Docusate Sodium (Senokot S) 2 tab PO BIDPRN PRN PRN Reason: Constipation Sodium Chloride (Flush - Normal Saline) 10 ml IVF PRN PRN PRN Reason: Saline Flush Last Admin: 06/13/19 21:24 Dose: 10 ml Sodium Chloride ([place] Nasal [place] 0.65%) 0 ml EA NARE QIDPRN PRN PRN Reason: Nasal Congestion Throat Lozenges (Cepastat Lozenges) 1 keagan PO Q2H PRN PRN Reason: Sore Throat Vital Signs & Weight: Vital Signs Temp Pulse Resp BP BP Pulse Ox 06/18/19 07:51 97.7 F 77 16 179/86 H 97 06/18/19 06:34 53 L 06/18/19 06:33 53 L 06/18/19 04:00 98.5 F 53 L 16 144/74 H 98 06/18/19 00:00 98.5 F 54 L 16 146/73 H 97 06/17/19 22:09 135/71 Admit Weight 173 lb 14.4 oz Weight 173 lb 14.4 oz - Physical Exam General: alert & oriented x3 HEENT: mucus membranes moist Neck: supple neck Cardiac: regular rate and rhythm, S1/S2 Lungs: clear to auscultation - Labs Result Diagrams: 06/16/19 09:22 06/18/19 04:34 Troponin/CKMB Troponin I 0.058 ng/mL (< 0.028) H 06/11/19 12:01 - Telemetry Sinus rhythms and dysrhythmias: sinus rhythm - Assessment/Plan Assessment/Plan: 1. SVT vs AFib - has been in SR with PACs and intermittent BBB; On Coreg to 25mg BID; Stress test showed no ischemia; S/p LINQ placement by Dr Baker 2. S/p CVA with Cerebral infarction due to embolism of left middle cerebral artery - on Plavix and ASA; managed by neurology service 3. CMY with EF 30-35% - On BBlocker and MAEGN. Stress test showed no ischemia; waiting for LifeVest; however, the pt is DNAR 4. HTN - stable with current med 5. HLD - 6. DM type 2 7. Current smoker 1/2 pk a day - smoking cessation education given to the pt MAR reviewed * Echo on 06/10/2019 with EF 30-35%, grade I dd, mild MR and AR, and trace TR * Carotid study showed no significant stenosis. * Stress test on 06/13/2019 with fixed defect in prox inferior wall, no ischemia , global hypokinesis, and EF 31% * EP will follow his Linq and AICD if he gets one or is agreeable to it. pt. seen and eval. by me. I agree with the A/P by the [employer]. He is still waiting on financial issues to get the Life-Vest. The cardiac status has remained stable. Chest clear. RRR. i will sign off. pt. to f/u with Dr. Baker for his arrhythmias and f/u of the Linq. arben
[2019-06-18] MEDS: metFORMIN 500 MG TAB PO SCH ×2 (09:08→17:00)
[2019-06-18] MEDS: Carvedilol 25 MG TAB PO SCH ×2 (09:08→17:00)
[2019-06-18] MEDS: Clopidogrel Bisulfate 75 MG TAB PO SCH (09:09)
[2019-06-18] MEDS: Amlodipine 10 MG TAB PO SCH (09:09)
[2019-06-18] MEDS: Lisinopril 20 MG TAB PO SCH ×2 (09:09→21:36)
[2019-06-18] MEDS: Famotidine 20 MG TAB PO SCH ×2 (09:09→21:36)
[2019-06-18] MEDS: Aspirin 81 mg Enteric Coated Tablet PO SCH (09:09)
[2019-06-18] MEDS ORDERED: Potassium Chloride 20 MEQ TAB PO SCH (09:30)
[2019-06-18] MEDS: HumaLOG 300 UNITS/3 ML VIAL SC PRN (10:49)
--- NOTE | 2019-06-18 15:43 | PDOC.HOSPP ---
- Subjective Encounter Date: 06/18/19 Encounter Time: 15:00 Subjective: CC: hypoglycemia, f/u stroke The patient had episode of hypoglycemia to blood sugar of 35. Was placed on D5W and then discontinued. The patient does not recall any of these events. Long acting insulin discontinued. The patient has no weakness/numbness, chest pain/shortness of breath Still awaiting for life-vest. Patient does not have insurance, family friend trying to bring utility bill from home to get the process going. BP ranging from 120 to 180 - Objective Vital Signs & Weight: Vital Signs (12 hours) Temp Pulse Resp BP BP Pulse Ox 06/18/19 12:28 61 134/67 06/18/19 11:45 98 F 61 16 134/67 99 06/18/19 09:09 77 179/86 H 06/18/19 07:51 97.7 F 77 16 179/86 H 97 06/18/19 07:40 98 06/18/19 06:34 53 L 06/18/19 06:33 53 L 06/18/19 04:00 98.5 F 53 L 16 144/74 H 98 Weight Admit Weight 173 lb 14.4 oz Weight 173 lb 14.4 oz I&O: 06/17/19 06/18/19 06/19/19 06:59 06:59 06:59 Intake Total 600 960 600 Balance 600 960 600 Result Diagrams: 06/16/19 09:22 06/18/19 04:34 Additional Labs: Accuchecks 06/18/19 06/18/19 06/18/19 10:44 09:08 05:50 POC Glucose 251 H 226 H 192 H 06/18/19 06/18/19 06/18/19 03:47 01:54 01:40 POC Glucose 228 H 277 H Less than 35 L* 06/18/19 06/17/19 06/17/19 01:15 20:33 16:33 POC Glucose 37 L* 84 90 Hospitalist ROS - Review of Systems Constitutional: denies: fever, chills Cardiovascular: denies: chest pain, palpitations - Medication Medications: Active Medications Generic Name Dose Route Start Last Admin Trade Name Freq PRN Reason Stop Dose Admin Acetaminophen 650 mg 06/10/19 12:33 06/15/19 00:08 Tylenol PO 650 mg Q4H PRN Administration Headache/Fever/Mild Pain (1-3) Hydrocodone Bitart/Acetaminophen 1 tab 06/11/19 00:04 06/13/19 08:19 [place] 5/325 PO 1 tab Q4H PRN Administration Moderate Pain (4-6) Amlodipine Besylate 10 mg 06/17/19 09:00 06/18/19 09:09 Norvasc PO 10 mg DAILY TRISTAN Administration Aspirin 81 mg 06/12/19 09:00 06/18/19 09:09 Ecotrin PO 81 mg DAILY TRISTAN Administration Atorvastatin Calcium 40 mg 06/10/19 21:00 06/17/19 22:09 Lipitor PO 40 mg HS TRISTAN Administration Carvedilol 25 mg 06/12/19 08:00 06/18/19 09:08 Coreg PO 25 mg BID-WM TRISTAN Administration Clopidogrel Bisulfate 75 mg 06/12/19 09:00 06/18/19 09:09 Plavix PO 75 mg DAILY TRISTAN Administration Famotidine 20 mg 06/12/19 09:00 06/18/19 09:09 Pepcid PO 20 mg BID TRISTAN Administration Guaifenesin 200 mg 06/10/19 23:54 06/11/19 00:51 Robitussin Sf PO 200 mg Q4H PRN Administration Cough Hydralazine HCl 10 mg 06/11/19 12:38 06/15/19 04:32 Apresoline SLOW IVP 10 mg Q4H PRN Administration SBP Greater Than 170 Hydralazine HCl 10 mg 06/13/19 12:00 06/18/19 12:28 Apresoline PO 10 mg Q6HR TRISTAN Administration Dextrose/Water 1,000 mls @ 0 mls/hr 06/10/19 12:33 06/18/19 01:44 D5w IV 1,000 mls .Q0M PRN Administration Hypoglycemia As Directed Insulin Human Lispro 0 units 06/10/19 12:33 06/18/19 10:49 Humalog SC 6 unit .MODERATE SLIDING SC PRN Administration Moderate Correctional Scale Lisinopril 20 mg 06/12/19 09:00 06/18/19 09:09 Zestril PO 20 mg BID TRISTAN Administration Metformin HCl 1,000 mg 06/12/19 08:00 06/18/19 09:08 Glucophage PO 1,000 mg BID-WM TRISTAN Administration Sodium Chloride 10 ml 06/10/19 12:33 06/13/19 21:24 Flush - Normal Saline IVF 10 ml PRN PRN Administration Saline Flush - Exam General Appearance: NAD, awake alert Eye: PERRL, anicteric sclera ENT: normocephalic atraumatic, no oropharyngeal lesions Neck: supple, symmetric, no JVD Heart: RRR, no murmur, no gallops, no rubs Respiratory: CTAB, no wheezes, no rales, no ronchi Gastrointestinal: soft, non-tender, non-distended Extremities: no cyanosis, no clubbing, no edema Skin: normal turgor, no lesions, no rashes Neurological: cranial nerve grossly intact, normal sensation to touch, no focal deficits, no new deficit Neurological - other findings: /5 strength RUE, RLE, LUE, LLE Musculoskeletal: normal tone, normal strength, no muscle wasting Psychiatric: normal affect, normal behavior, A&O x 3, oriented to person Hosp A/P (1) Atrial tachycardia Code(s): I47.1 - SUPRAVENTRICULAR TACHYCARDIA Status: Acute (2) CVA (cerebral vascular accident) Code(s): I63.9 - CEREBRAL INFARCTION, UNSPECIFIED Status: Acute Qualifiers: CVA mechanism: embolism Precerebral and cerebral artery: middle cerebral artery Laterality of affected vessel: left Qualified Code(s): I63.412 - Cerebral infarction due to embolism of left middle cerebral artery (3) Paroxysmal SVT (supraventricular tachycardia) Code(s): I47.1 - SUPRAVENTRICULAR TACHYCARDIA Status: Acute (4) Diabetes mellitus Code(s): E11.9 - TYPE 2 DIABETES MELLITUS WITHOUT COMPLICATIONS Status: Chronic Qualifiers: Diabetes mellitus type: type 2 Diabetes mellitus fpc insulin use: with fpc use Diabetes mellitus complication status: without complication Qualified Code(s): E11.9 - Type 2 diabetes mellitus without complications; Z79.4 - terminal make up operator (current) use of insulin (5) Hypertension Code(s): I10 - ESSENTIAL (PRIMARY) HYPERTENSION Status: Chronic Qualifiers: Hypertension type: essential hypertension Qualified Code(s): I10 - Essential (primary) hypertension - Plan MRI 06/10: left parieto-occipital infarction CT brain: left parieto-occipital infarction Nuclear stress tesT 06/14: EF 31%, global hypokinesis This is 58 year old male who presented with chest pain and confusion. Found to have a stroke. Stress test showed Ef 31%, patient is s/p loop recorder placement #Left parietal stroke - noted on MRI - on aspirin, statin, plavix -can be discharged home with home health #Hypoglycemia #Type II diabetes - continue metformin - discontinue insulin 30 units - sliding scale prn #Atrial tachycardia #Systolic heart failure with EF 30% #Hypertension -s/p loop recorder placement. Awaiting life-vest, problem with insurance approval - may need ICD implant in 3 months if systolic function does not improve per Dr. Baker - on aspirin, statin, plavix - coreg 25 mg bid, amlodipine 10 mg daily, lisinopril 20 mg bid. Will change hydralazine to 25 mg tid Hyponatremia - sodium 135, encourage oral intake Code status: full code Dispo: waiting for life-vest with insurance approval
[2019-06-18] MEDS: Atorvastatin Calcium 40 MG TAB PO SCH (21:35)
[2019-06-18] MEDS: hydrALAZINE 25 MG TAB PO SCH (21:36)
[2019-06-18] MEDS: Acetaminophen 325 MG TAB PO PRN (22:25)
[2019-06-19] MEDS: HumaLOG 300 UNITS/3 ML VIAL SC PRN ×2 (06:45→11:03)
[2019-06-19] MEDS: Carvedilol 25 MG TAB PO SCH ×2 (09:25→16:00)
[2019-06-19] MEDS: Amlodipine 10 MG TAB PO SCH (09:25)
[2019-06-19] MEDS: metFORMIN 500 MG TAB PO SCH ×2 (09:25→16:00)
[2019-06-19] MEDS: Aspirin 81 mg Enteric Coated Tablet PO SCH (09:26)
[2019-06-19] MEDS: hydrALAZINE 25 MG TAB PO SCH ×2 (09:26→16:00)
[2019-06-19] MEDS: Famotidine 20 MG TAB PO SCH (09:26)
[2019-06-19] MEDS: Clopidogrel Bisulfate 75 MG TAB PO SCH (09:26)
[2019-06-19] MEDS: Lisinopril 20 MG TAB PO SCH (09:26)
[2019-06-19 11:29] VITALS: TEMP 98.1
[2019-06-19 15:22] VITALS: BP 123/70
--- NOTE | 2019-06-20 05:35 | PQF ---
Palomo Kong, VIOLA [id number] CLINICAL DOCUMENTATION CLARIFICATION FORM: POST DISCHARGE Addendum to original discharge summary date: ____ Late entry note date: __ DATE: 06/20/19 ATTN: Viola Aguilar Please exercise your independent, professional judgment in responding to the clarification form. Clinical indicators are provided on the bottom of this form for your review Please check appropriate box(s): [ ] Encephalopathy: Type: [ X ] Acute [ ] Subacute [ ] Chronic Etiology: [ ] Hypertensive [ ] Metabolic [ ] Toxic [ ] Hepatic with Coma [ ] Hepatic w/o Coma [ ] Hypoxic [ ] Septic [ ] Drug induced: [ ] Unspecified [ ] in the setting of underlying dementia [ ] Other (please specify) [ ] Transient Alteration of Awareness [ ] Other diagnosis [ ] Unable to determine In addition, please specify: Present on Admission (POA): [ X ] Yes [ ] No [ ] Unable to determine For continuity of documentation, please document condition throughout progress notes and discharge summary. Thank You. CLINICAL INDICATORS - SIGNS / SYMPTOMS / LABS Altered mental status / confusion improving once cause is corrected (acute) ED note p1 06/10 Blood sugar in 400s at [place], most recent glucose 210 ED note p2 06/10 total NIHSS 5, GCS 15 H&P p1 06/10 Dr Jang He was sent to [facility] ER with confusion, altered mental status Neuro consult p2 06/11 Dr Thomas present with some right visual field deficit that apparently is new RISK FACTORS H&P p1 06/10 History of Stroke ealier this year H&P p1 06/10 History of DM on metformin Neuro consult p1 06/11 Acute Left Occipital stroke TREATMENTS: Neurology consult 06/11 Ranjan Valdez Neuro consult p2 06/11 Neuro monitoring Operative report 06/13 Loop recorder insertion (This form is maintained as a part of the permanent medical record) 2014 [employer], [employer] [place]. All Rights Reserved Maryann [email or web address] [place] [employer] [not provided] MTDD
--- NOTE | 2019-06-20 05:38 | PQF ---
Palomo Kong, VIOLA [id number] CLINICAL DOCUMENTATION CLARIFICATION FORM: POST DISCHARGE Addendum to original discharge summary date: ____ Late entry note date: __ DATE: 06/20/19 ATTN: Viola Aguilar Please exercise your independent, professional judgment in responding to the clarification form. Clinical indicators are provided on the bottom of this form for your review Please check appropriate box(s): Conflicting documentation was noted in the Medical Record, please clarify if patient is being treated/monitored for: [ ] Acute combine CHF exacerbation [X ] Systolic Dysfunction without heart failure [ ] Other diagnosis [ ] Unable to determine In addition, please specify: Present on Admission (POA): [ ] Yes [ ] No [ ] Unable to determine For continuity of documentation, please document condition throughout progress notes and discharge summary. Thank You. CLINICAL INDICATORS - SIGNS / SYMPTOMS/ LABS H&P p1 06/10 Dr Jang Present with right-sided chest pain Cardiology consult p4 06/11 Dr Gutierrez There was some note that had an elevated BNP RISK FACTORS H&P p3 06/10 Afib with rapid ventricular response H&P p3 06/10 Hypertension Cardiology consult p4 06/11 Cardiomyopathy Hospitalist PN p5 06/11 Acute combined CHF Hospitalist PN p6 Systolic Dysfunction without heart failure TREATMENT H&P p3 06/10 telemetry monitoring H&P p3 06/10 IV infusion of Cardizem Cardiology Consult 06/11 Andrew Calvert Operative report 06/13 Loop recorder insertion (This form is maintained as a part of the permanent medical record) 2014 [employer]. All Rights Reserved [email or web address] [not provided] MTDD
--- NOTE | 2019-06-20 11:26 | DIS ---
DATE OF ADMISSION: 06/10/2019 DATE OF DISCHARGE: 06/19/2019 CONSULTATIONS: Dr. Belia Gutierrez of Cardiology, Dr. Donovan Baker with Electrophysiology, Palliative Care with Anaya Blakely. PROCEDURES: Loop recorder insertion on 06/13. BRIEF HISTORY OF PRESENT ILLNESS: This is a 58-year-old male with a past medical history of diabetes, hypertension, hyperlipidemia, COPD, who had initially presented to the emergency department after a fall. The patient had driven to [facility] due to right-sided chest pain and he thought he had a rib fracture. The patient has some right-sided hemiplegia from a stroke early this year. Upon presentation to the emergency room, the patient was noted to have some mild speech deficit. The patient was also found to be in atrial fibrillation with RVR with a heart rate of 150 on evaluation. The patient was admitted for workup of atrial fibrillation with RVR and also for workup of stroke. HOSPITAL COURSE: Left parietal stroke: CT scan of the head showed a left parieto-occipital infarction. MRI on the showed the same. Neurology was consulted. The patient was on aspirin and statin, and Plavix was added. Echocardiogram on the showed no thrombus, but showed an EF of 30% to 35%. The patient was seen by Physical Therapy who had recommended the patient be discharged with home health. The patient was set up with home health with [facility] since the patient did not have any health insurance. He had equal strength in all four extremities on discharge. The patient should follow up with Dr. Thomas from Neurology in a month. Atrial tachycardia: Systolic CHF: The patient was noted to be in atrial fibrillation with RVR on arrival and initially started on a Cardizem drip. Cardiology was consulted on the and they thought that the patient was actually having atrial tachycardia instead. The patient underwent EP consultation. A loop recorder was placed on the . The patient had a stress test done, which showed an EF of 31% with global hypokinesis. It was advised that the patient get a LifeVest which was placed 06/19. . The patient was placed on Coreg 25 mg twice a day for heart rate control. He should follow up with Dr. Baker in a month. If the patient does not have any improvement in his ejection fraction within 3 months, ICD implant should be considered. He was referred to heart failure clinic on discharge and lasix can be prescribed if needed. Hypoglycemia/type 2 diabetes: The patient was on metformin and long-acting insulin. However, the patient had some episodes of hypoglycemia with a blood sugar of 30 on the 8th. His insulin was discontinued and he was continued on metformin. Blood sugars remain 160 to 274 with just metformin. The patient will be discharged on metformin for his diabetes. He should follow up with his PCP in a week. Hypertension: The patient had elevated blood pressures ranging from 130s to 190 systolic. The patient was started on Coreg 25 mg p.o. b.i.d., amlodipine 10 mg daily, and lisinopril 20 mg b.i.d. The patient was started on hydralazine 25 mg t.i.d. Blood pressure on the day of discharge is now 123/70. The patient should follow up with his PCP in a week for followup of his blood pressure. Hypokalemia: Potassium was 3.4 on the 8th. This was replaced. The patient should have a repeat BMP as an outpatient to follow up. DISCHARGE PHYSICAL EXAMINATION: VITAL SIGNS: Temperature 98.1, heart rate 70, blood pressure 123/70, respiratory rate 16, O2 saturation 97% on room air. GENERAL: The patient is alert, awake, oriented x3. CVS: Regular rate and rhythm with no murmurs, rubs, or gallops. LUNGS: Clear to auscultation bilaterally. ABDOMEN: Positive bowel sounds, soft, nontender, nondistended. 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 He has 5/5 strength in his upper and lower extremities. NEUROLOGICAL: Cranial nerves 2 through 12 were intact. There is equal sensation in all 4 extremities. The patient has 5/5 strength in all four of his extremities. The patient ambulates with a walker. PERTINENT LABORATORY DATA: CBC on 06/16: was within normal limits. BMP on 06/18: potassium 3.4. Glucose 221. Rest of BMP unremarkable. LFTs on the :within normal limits. Lipid panel on 06/11: LDL of 118, HDL of 27, total cholesterol of 177, triglyceride of 162. Vitamin B12 :322. TSH :1.37. Prolactin :4.57. PERTINENT IMAGING DATA: CT brain : left parietal occipital infarction. MRI brain :left parietal occipital infarction, which is acute to subacute. Carotid Doppler study on 06/10:shows no significant stenosis. Stress test on 06/14:shows EF of 31% with global hypokinesis. No evidence of reversible ischemia. DISCHARGE CONDITION: Stable. ACTIVITY: The patient will ambulate with a walker and will need outpatient physical therapy. DIET: Heart healthy diet with a 2 L fluid restriction. DISCHARGE MEDICATIONS: 1. Amlodipine 5 mg p.o. daily. 2. Aspirin 81 mg p.o. daily. 3. Atorvastatin 40 mg p.o. at bedtime. 4. Coreg 25 mg p.o. b.i.d. 5. Plavix 75 mg p.o. daily. 6. Pepcid 20 mg p.o. b.i.d. 7. Hydralazine 25 mg p.o. t.i.d. 8. Lisinopril 20 mg p.o. b.i.d. 9. Metformin 1000 mg p.o. b.i.d. DISCHARGE INSTRUCTIONS: The patient should follow up with PCP in a week, Neurology, Dr. Thomas in a month, Dr. Baker in 2 weeks, and Dr. Gutierrez in a month. Blood pressure control should be reassessed with addition of new medications. The patient should have a repeat BMP in a week. Consider initiating Lasix if any symptoms of heart failure occur. The patient should follow a 2 L fluid restriction. Job ID: [id number] [facility]
== END 2019-06-19 19:26 | disposition home health service (06) | DRG 41 ==
LOC: ERS 09:06 → 2SE 12:33
PROVIDERS: ADMIT Internal Medicine; ATTEND Internal Medicine
PROC: 0JH632Z Insertion of Monitoring Device into Chest Subcutaneous Tissue and Fascia, Percutaneous Approach (ICD-10-PCS; principal; 2019-06-13)
DX: I63.412 Cerebral infarction due to embolism of left middle cerebral artery (principal); I47.1 Supraventricular tachycardia; I42.9 Cardiomyopathy, unspecified; E87.1 Hypo-osmolality and hyponatremia; I69.351 Hemiplegia and hemiparesis following cerebral infarction affecting right dominant side; G93.40 Encephalopathy, unspecified; R47.01 Aphasia; E11.22 Type 2 diabetes mellitus with diabetic chronic kidney disease; E78.5 Hyperlipidemia, unspecified; N18.3 Chronic kidney disease, stage 3 (moderate); I12.9 Hypertensive chronic kidney disease with stage 1 through stage 4 chronic kidney disease, or unspecified chronic kidney disease; F17.200 Nicotine dependence, unspecified, uncomplicated; J44.9 Chronic obstructive pulmonary disease, unspecified; E78.00 Pure hypercholesterolemia, unspecified; I48.0 Paroxysmal atrial fibrillation; I73.00 Raynaud's syndrome without gangrene; I08.3 Combined rheumatic disorders of mitral, aortic and tricuspid valves; H53.8 Other visual disturbances; R29.705 NIHSS score 5; R40.2362 Coma scale, best motor response, obeys commands, at arrival to emergency department; R40.2142 Coma scale, eyes open, spontaneous, at arrival to emergency department; R40.2252 Coma scale, best verbal response, oriented, at arrival to emergency department; I51.89 Other ill-defined heart diseases; E11.649 Type 2 diabetes mellitus with hypoglycemia without coma; Z88.5 Allergy status to narcotic agent; Z79.899 Other long term (current) drug therapy; Z79.84 Long term (current) use of oral hypoglycemic drugs; Z79.4 Long term (current) use of insulin; Z79.82 Long term (current) use of aspirin
CPT/HCPCS: 33285; 36415; 36416; 70450; 70551; 78452; 80048; 80053; 80061; 82607; 83036; 83930; 84146; 84443; 84484; 85025; 85027; 93005; 93010; 93017; 93306; 93880; 96360; 96372; A9500; C1764; J0360; J1650; J1815; J2785; J3490